=== PATIENT | female | born 1945 | race Caucasian/White ===

== ENCOUNTER 2017-02-25 23:54 | Emergency (ER) | payer OTHER ==
[2017-02-26 00:28] VITALS: BP 180/86
[2017-02-26] MEDS ORDERED: Codeine/Promethazine 10-6.25 MG/5 ML Syrup 5 ML UD Cup PO ONE (01:15)
--- NOTE | 2017-02-26 01:20 | EDM.PDOC ---
ED HPI HEADACHE COMPLAINT - General Chief Complaint: Headache Stated Complaint: HEAD PAIN Time Seen by Provider: 02/26/17 01:16 Source of Information: Reports: Patient History Limitations: Reports: No limitations - History of Present Illness INITIAL COMMENTS - FREE TEXT/NARRATIVE: states been having coughing problem for 2 months and been to clinic & PMD and taking many Rx and still not totally better, did get flu shot this year and seems like everything started afterwards. tonight was coughing so hard that suddenly everything went up into head head giving her a really bad headache and her naprosn for arthritic pain not helping. - Related Data Allergies/ADRs: Allergies Allergy/AdvReac Type Severity Reaction Status Date / Time aspirin Allergy Unknown UNKNOWN Unverified 01/20/17 16:09 Fish Containing Products Allergy Difficulty Verified 01/20/17 16:09 Breathing prochlorperazine maleate Allergy Cannot Verified 01/20/17 16:09 [From Compazine] Remember Home Meds: Home Meds Naproxen Sodium 220 mg PO QID PRN 12/16/16 [History] Benzonatate 200 mg PO ASDIRECTED PRN 02/26/17 [History] Losartan [Cozaar] 25 mg PO DAILY 02/26/17 [History] predniSONE 2.5 mg PO ASDIRECTED 02/26/17 [History] Past Medical History - Past Health History Medical/Surgical History: Denies Medical/Surgical History HEENT History: Reports: None Cardiovascular History: Reports: Hypertension Respiratory History: Reports: None Gastrointestinal History: Reports: None Genitourinary History: Reports: 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 Musculoskeletal History: Reports: Arthritis Neurological History: Reports: None Psychiatric History: Reports: None Endocrine/Metabolic History: Reports: None Hematologic History: Reports: None Immunologic History: Reports: None Oncologic (Cancer) History: Reports: None - Infectious Disease History Infectious Disease History: Reports: Chicken pox, Measles, Mumps - Past Surgical History Head Surgeries/Procedures: Reports: None HEENT Surgical History: Reports: Cataract surgery Social & Family History - Family History Family Medical History: Noncontributory - Tobacco Use Smoking Status *Q: Current Every Day Smoker Years of Tobacco use: 35 Packs/Tins Daily: 0.5 Month Tobacco Last Used: 1 Second Hand Smoke Exposure: No - Caffeine Use Caffeine Use: Reports: None - Recreational Drug Use Recreational Drug Use: No ED ROS GENERAL - Review of Systems Review Of Systems: ROS reveals no pertinent complaints other than HPI. - Physical Exam Exam: See Below Exam Limited By: No limitations General Appearance: alert, WD/WN, mild distress, other (crying) Eye Exam: bilateral eye: PERRL (pupils ER @ 4mm) Ears: normal external exam, normal canal, hearing grossly normal, normal TMs Nose: normal inspection Throat/Mouth: Normal voice, No airway compromise Head Exam: atraumatic Neck: non-tender, full range of motion Respiratory/Chest: no respiratory distress, no accessory muscle use, rhonchi. No: decreased breath sounds, accessory muscle use, retractions Cardiovascular: regular rate, rhythm GI/Abdominal: soft, non tender Neuro Exam (Abbreviated): alert, oriented, normal cognition, normal gait, no motor/sensory deficits Psychiatric: tearful Skin Exam: Warm, Dry Course - Vital Signs Last Recorded V/S: Last Vital Signs Temp 36.4 C 02/26/17 00:09 Pulse 64 02/26/17 00:09 Resp 16 02/26/17 00:09 BP 180/86 H 02/26/17 00:09 Pulse Ox 100 02/26/17 00:09 - Orders/Labs/Meds Orders: Active Orders 24 hr Category Date Time Status Codeine/Promethazine [Phenergan with Codeine] Med 02/26/17 01:15 Once 5 ml PO ONETIME ONE Medication Orders Promethazine HCl/Codeine (Phenergan With Codeine) 5 ml PO ONETIME ONE Stop: 02/26/17 01:16 Meds: Medications Generic Name Dose Route Start Last Admin Trade Name Víctor PRN Reason Stop Dose Admin Promethazine HCl/Codeine 5 ml 02/26/17 01:15 Phenergan With Codeine PO 02/26/17 01:16 ONETIME ONE Departure - Departure Time of Disposition: 01:19 Disposition: Home, Self-Care 01 Clinical Impression: Sinus headache Instructions: Sinus Headache, [id number] Forms: ED Department Discharge Additional Instructions: 1) continue meds 2) rest as much as possible 3) follow up at clinic or recheck as needed - My Orders Last 24 Hours: My Active Orders 02/26/17 01:15 Codeine/Promethazine [Phenergan with Codeine] 5 ml PO ONETIME ONE - Assessment/Plan Last 24 Hours: My Active Orders 02/26/17 01:15 Codeine/Promethazine [Phenergan with Codeine] 5 ml PO ONETIME ONE
== END 2017-02-26 01:30 | disposition home or self-care (01) ==
LOC: DL.ED 23:54
DX: R51 Headache (principal); I10 Essential (primary) hypertension; F17.210 Nicotine dependence, cigarettes, uncomplicated; M19.90 Unspecified osteoarthritis, unspecified site; Z98.49 Cataract extraction status, unspecified eye; Z88.6 Allergy status to analgesic agent; Z91.013 Allergy to seafood; Z88.8 Allergy status to other drugs, medicaments and biological substances; Z79.899 Other long term (current) drug therapy
CPT/HCPCS: 99283; A9270

== ENCOUNTER 2017-09-20 05:34 | Day surgery (SDC) | payer OTHER ==
[2017-09-20] MEDS ORDERED: fentaNYL 100 MCG/2 ML SDV IV ONE ×3 (05:35→07:10)
[2017-09-20] MEDS ORDERED: Midazolam 1 MG/ML 2 ML SDV IV ONE ×6 (05:35→07:17)
[2017-09-20] MEDS ORDERED: Sodium Chloride 0.9% 10 ML Syringe FLUSH PRN (06:00)
[2017-09-20] MEDS ORDERED: Dextrose 5%-0.45% NaCl 1,000 ML IV SCH (06:00)
[2017-09-20] MEDS ORDERED: Midazolam 1 MG/ML 2 ML SDV ONE (06:24)
[2017-09-20] MEDS ORDERED: fentaNYL 100 MCG/2 ML SDV ONE (06:25)
--- NOTE | 2017-09-20 08:16 | OR ---
DATE: 09/20/2017 PROCEDURE: Total colonoscopy. INSTRUMENT USED: CF-H180 AL Olympus video colonoscope. PREMEDICATIONS: Fentanyl 100 mcg intravenous, Versed 3 mg intravenous. Nasal O2 cannula. The procedure was done under pulse oximetry, BP recording, and linoleum floor layer. INDICATION: The patient with rectal bleeding. Colonoscopic examination is done for detection of any polypoid lesions and removal, endoscopic hemostasis therapy if needed. DESCRIPTION OF PROCEDURE: Initial rectal exam was unremarkable. Rigid anoscopy showed small internal hemorrhoids without bleeding from them. The colonoscope was passed with ease. Few scattered diverticula were noted in the distal left colon. The scope was passed with ease up to the ileocecal area. Photographs were taken of the normal-appearing cecum, identified by double- bulged ileocecal folds. No bleeding was noted from any of the visualized areas at the commencement of the examination. No stricture. No vascular ectasia. No large isolated ulcerations seen. No evidence of diffuse inflammatory bowel disease in the form of friability, contact bleeding, or ulcerations. No polyp or tumor mass identified. Probing the proximal sides of folds and flexures, using adequate distention and clearing up of the stool material, withdrawal of the scope was made. Cecum to rectum time over 6 minutes. No bleeding was noted from any of the visualized areas at the completion of examination. IMPRESSION: 1. Internal hemorrhoids. 2. Diverticulosis. The patient tolerated the procedure well. [facility] /[id number]
--- NOTE | 2017-09-20 08:54 | LETTER ---
09/20/2017 Annette Ribeiro, TUCKER [facility] [address] [place] [address] RE: MELVIN CAITIE Le : 1945 Dear Ms. Ribeiro: Ms. Caitie Guevara had colonoscopic examination done this morning and she tolerated the procedure well. I herewith send a copy of the endoscopy note and photographs for your review. She is being recommended to use Tucks pads perianal wipe as needed for irritation around the area. Thank you. Sincerely, [facility] /[id number]
[2017-09-20 09:20] VITALS: BP 109/65
== END 2017-09-20 09:29 | disposition home or self-care (01) ==
LOC: DL.ENDO 05:34
PROVIDERS: ATTEND Internal Medicine Gastroenterology
DX: K57.30 Diverticulosis of large intestine without perforation or abscess without bleeding (principal); K64.8 Other hemorrhoids; E66.09 Other obesity due to excess calories; I10 Essential (primary) hypertension; Z90.49 Acquired absence of other specified parts of digestive tract
CPT/HCPCS: 45378; J2250; J3010; J7042

== ENCOUNTER 2017-11-12 20:05 | Emergency (ER) | payer OTHER ==
[2017-11-12] MEDS ORDERED: diphenhydrAMINE 25 MG Tab PO ONE (20:06)
[2017-11-12 20:58] VITALS: BP 183/63
--- NOTE | 2017-11-12 22:18 | EDM.PDOC ---
ED HPI GENERAL MEDICAL PROBLEM - General Chief Complaint: Skin Complaint Stated Complaint: RED FARR ON WHOLE BODY [id number] Time Seen by Provider: 11/12/17 22:54 Source of Information: Reports: Patient History Limitations: Reports: No Limitations - History of Present Illness INITIAL COMMENTS - FREE TEXT/NARRATIVE: red rash to body noted saturday after using different dryer sheets, wahed off with peroxide yesterday and some better, continued below breasts and abdomen, itchy area to left ankle. no SOB Onset: Today - Related Data Allergies Allergy/AdvReac Type Severity Reaction Status Date / Time aspirin Allergy Unknown UNKNOWN Verified 11/12/17 20:48 acetaminophen Allergy Hives Verified 11/12/17 20:48 buprenorphine Allergy Hives Verified 11/12/17 20:48 butorphanol Allergy Cannot Verified 11/12/17 20:48 Remember cetirizine Allergy Hives Verified 11/12/17 20:48 codeine Allergy Hives Verified 11/12/17 20:48 Fish Containing Products Allergy Difficulty Verified 11/12/17 20:48 Breathing ibuprofen Allergy Cannot Verified 11/12/17 20:48 Remember Penicillins Allergy Hives Verified 11/12/17 20:48 pentazocine [From Talwin] Allergy Hives Verified 11/12/17 20:48 prochlorperazine maleate Allergy Hives Verified 11/12/17 20:48 [From Compazine] sulfamethoxazole Allergy Hives Verified 11/12/17 20:48 [From Bactrim] sumatriptan Allergy Cannot Verified 11/12/17 20:48 Remember trimethoprim [From Bactrim] Allergy Cannot Verified 11/12/17 20:48 Remember dihydroerotamine mesylate Allergy Cannot Uncoded 11/12/17 20:48 Remember ketorolac tromethamine Allergy Cannot Uncoded 11/12/17 20:48 Remember Home Meds: Home Meds Aspirin [Ecotrin] 81 mg PO DAILY 07/01/17 [History] Khmer Ginseng Root [Khmer Ginseng] 1 tab PO DAILY 07/01/17 [History] Metoprolol Succinate [Toprol Xl] 50 mg PO DAILY 07/01/17 [History] Nitroglycerin 0.4 mg SL ASDIRECTED PRN 07/01/17 [History] Simvastatin [Zocor] 1 tab PO DAILY 07/01/17 [History] Past Medical History - Past Health History Medical/Surgical History: Denies Medical/Surgical History HEENT History: Reports: Cataract Cardiovascular History: Reports: High Cholesterol, Hypertension, Other (See Below) Other Cardiovascular History: Hyperlipidemia Respiratory History: Reports: None Gastrointestinal History: Reports: Hemorrhoids Genitourinary History: Reports: 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: Musculoskeletal History: Reports: Arthritis Neurological History: Reports: None Psychiatric History: Reports: None Endocrine/Metabolic History: Reports: Obesity/BMI 30+ Hematologic History: Reports: None Immunologic History: Reports: None Oncologic (Cancer) History: Reports: None - Infectious Disease History Infectious Disease History: Reports: Chicken Pox, Measles, Mumps - Past Surgical History Head Surgeries/Procedures: Reports: None HEENT Surgical History: Reports: Cataract Surgery Respiratory Surgical History: Reports: None GI Surgical History: Reports: Cholecystectomy, Other (See Below) Other GI Surgeries/Procedures: External Hemorrhoid. Female Surgical History: Reports: Hysterectomy Endocrine Surgical History: Reports: None Neurological Surgical History: Reports: None Oncologic Surgical History: Reports: None Social & Family History - Family History Family Medical History: Noncontributory - Tobacco Use Smoking Status *Q: Current Some Day Smoker Years of Tobacco use: 40 Packs/Tins Daily: 0.1 Month Tobacco Last Used: 1 Second Hand Smoke Exposure: No - Caffeine Use Caffeine Use: Reports: Coffee - Recreational Drug Use Recreational Drug Use: No ED ROS GENERAL - Review of Systems Review Of Systems: See Below Constitutional: Reports: Chills HEENT: Denies: No Symptoms Respiratory: Reports: No Symptoms Cardiovascular: Reports: No Symptoms Endocrine: Reports: No Symptoms GI/Abdominal: Reports: No Symptoms : Reports: No Symptoms Musculoskeletal: Reports: No Symptoms Skin: Reports: Rash, Change in Color Neurological: Reports: Pre-Existing Deficit, Difficulty Walking Psychiatric: Reports: No Symptoms Hematologic/Lymphatic: Reports: No Symptoms Immunologic: Reports: No Symptoms ED EXAM, SKIN/RASH Exam: See Below Exam Limited By: No Limitations General Appearance: Alert, No Apparent Distress Eye Exam: Bilateral Eye: EOMI Ears: Normal External Exam Nose: Normal Inspection Throat/Mouth: Normal Inspection Head: Atraumatic, Normocephalic Neck: Normal Inspection Respiratory/Chest: No Respiratory Distress, Lungs Clear, Normal Breath Sounds, No Accessory Muscle Use Cardiovascular: Normal Peripheral Pulses, Regular Rate, Rhythm GI/Abdominal: Non-Tender, No Mass Back Exam: Normal Inspection Extremities: Normal Inspection Neurological: Alert, Oriented, Normal Cognition Skin: Warm, Dry, Intact, Rash (red rasised urticarial lower left leg, ankle below lower abdominal fold, below bilateral breast, bilateral axilla to mid lateral side.), Other Course - Vital Signs Last Recorded V/S: Last Vital Signs Temp 97.4 F 11/12/17 20:51 Pulse 63 11/12/17 20:51 Resp 18 11/12/17 20:51 BP 183/63 H 11/12/17 20:57 Pulse Ox 98 11/12/17 20:51 - Orders/Labs/Meds Meds: Medications Discontinued Medications Generic Name Dose Route Start Last Admin Trade Name Freq PRN Reason Stop Dose Admin Diphenhydramine HCl Confirm 11/12/17 23:05 Benadryl Administered 11/12/17 23:06 Dose 25 mg .ROUTE .STK-MED ONE - Re-Assessments/Exams Free Text/Narrative Re-Assessment/Exam: 11/13/17 06:45 Temp improved from home with Ibuprofen, Sucking on bottle. cheeks flushed. Strong cry. Departure - Departure Time of Disposition: 22:57 Disposition: Home, Self-Care 01 Condition: Good Clinical Impression: Contact dermatitis Qualifiers: Contact dermatitis type: irritant Contact dermatitis trigger: unspecified trigger Qualified Code(s): L24.9 - Irritant contact dermatitis, unspecified cause - Discharge Information Instructions: Contact Dermatitis, [id number] Referrals: PCP,Unobtain [Primary Care Provider] - Forms: ED Department Discharge Additional Instructions: benadryl 25mg every 6 hours as needed for rash/itching hydrocortisone cream 1% as needed to rash area follow up if not resolved in 2-3 days rewash clothing which was washed with new dryer sheets
[2017-11-12] MEDS ORDERED: diphenhydrAMINE 25 MG Tab ONE (23:05)
== END 2017-11-12 23:09 | disposition home or self-care (01) ==
LOC: DL.ED 20:05
DX: L24.9 Irritant contact dermatitis, unspecified cause (principal); I10 Essential (primary) hypertension; F17.210 Nicotine dependence, cigarettes, uncomplicated; E78.00 Pure hypercholesterolemia, unspecified; Z88.6 Allergy status to analgesic agent; Z88.8 Allergy status to other drugs, medicaments and biological substances; Z88.0 Allergy status to penicillin; Z88.2 Allergy status to sulfonamides; Z91.013 Allergy to seafood; Z88.1 Allergy status to other antibiotic agents; Z79.82 Long term (current) use of aspirin; Z79.899 Other long term (current) drug therapy
CPT/HCPCS: 99283; A9270

== ENCOUNTER 2019-01-26 09:42 | Observation (INO) | payer BC, OTHER ==
--- NOTE | 2019-01-26 09:37 | EDM.PDOC ---
ED HPI GENERAL MEDICAL PROBLEM - General Chief Complaint: Chest Pain Stated Complaint: NEW ONSET AFIB WITH RVR Time Seen by Provider: 01/26/19 09:30 Source of Information: Reports: Patient, Provider ([facility]) History Limitations: Reports: No Limitations - History of Present Illness INITIAL COMMENTS - FREE TEXT/NARRATIVE: This 73 yo female patient was sent to the ED from the [facility] via [facility] due to new onset A fib with RVR. Dr. Medrano reports that the patient came into the clinic this morning with increased shortness of breath and chest pain ( 10/10). Their EKG demonstrated the patient was in a fib with a heartrate of 130. The patient was given aspirin (324 mg) prior to ambulance transport. The patient reported her chest pain was an 8/10 upon arrival in the ED, but after belching several times her pain was gone. The patient reports her pain is now gone. Onset: Today Duration: Constant Location: Reports: Chest Quality: Reports: Other Severity: Moderate Improves with: Reports: Other (belching) Worsens with: Reports: None Context: Reports: Other Associated Symptoms: Reports: Chest Pain, Weakness Epigastric Pain Score (Numeric/FACES): 8 - Related Data Allergies Allergy/AdvReac Type Severity Reaction Status Date / Time aspirin Allergy Unknown UNKNOWN Verified 01/26/19 09:37 acetaminophen Allergy Hives Verified 01/26/19 09:37 buprenorphine Allergy Hives Verified 01/26/19 09:37 butorphanol Allergy Cannot Verified 01/26/19 09:37 Remember cetirizine Allergy Hives Verified 01/26/19 09:37 codeine Allergy Hives Verified 01/26/19 09:37 Fish Containing Products Allergy Difficulty Verified 01/26/19 09:37 Breathing ibuprofen Allergy Cannot Verified 01/26/19 09:37 Remember Penicillins Allergy Hives Verified 01/26/19 09:37 pentazocine [From Talwin] Allergy Hives Verified 01/26/19 09:37 prochlorperazine maleate Allergy Hives Verified 01/26/19 09:37 [From Compazine] sulfamethoxazole Allergy Hives Verified 01/26/19 09:37 [From Bactrim] sumatriptan Allergy Cannot Verified 01/26/19 09:37 Remember trimethoprim [From Bactrim] Allergy Cannot Verified 01/26/19 09:37 Remember dihydroerotamine mesylate Allergy Cannot Uncoded 11/12/17 20:48 Remember ketorolac tromethamine Allergy Cannot Uncoded 11/12/17 20:48 Remember Home Meds: Home Meds Aspirin [Ecotrin] 81 mg PO DAILY 07/01/17 [History] Nitroglycerin 0.4 mg SL ASDIRECTED PRN 07/01/17 [History] Simvastatin [Zocor] 1 tab PO DAILY 07/01/17 [History] Losartan Potassium 25 mg PO DAILY 01/26/19 [History] QUEtiapine Fumarate [Quetiapine Fumarate] 25 mg PO QPM 01/26/19 [History] Past Medical History - Past Health History Medical/Surgical History: Denies Medical/Surgical History HEENT History: Reports: Cataract Cardiovascular History: Reports: High Cholesterol, Hypertension, Other (See Below) Other Cardiovascular History: Hyperlipidemia Respiratory History: Reports: None Gastrointestinal History: Reports: Hemorrhoids Genitourinary History: Reports: None 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: Musculoskeletal History: Reports: Arthritis Neurological History: Reports: None Psychiatric History: Reports: None Endocrine/Metabolic History: Reports: Obesity/BMI 30+ Hematologic History: Reports: None Immunologic History: Reports: None Oncologic (Cancer) History: Reports: None - Infectious Disease History Infectious Disease History: Reports: Chicken Pox, Measles, Mumps - Past Surgical History Head Surgeries/Procedures: Reports: None HEENT Surgical History: Reports: Cataract Surgery Respiratory Surgical History: Reports: None GI Surgical History: Reports: Cholecystectomy, Other (See Below) Other GI Surgeries/Procedures: External Hemorrhoid. Female Surgical History: Reports: Hysterectomy Endocrine Surgical History: Reports: None Neurological Surgical History: Reports: None Oncologic Surgical History: Reports: None Social & Family History - Family History Family Medical History: Noncontributory - Caffeine Use Caffeine Use: Reports: Coffee ED ROS GENERAL - Review of Systems Review Of Systems: ROS reveals no pertinent complaints other than HPI. ED EXAM, GENERAL - Physical Exam Exam: See Below Exam Limited By: No Limitations General Appearance: Alert, WD/WN, Moderate Distress, Obese Eye Exam: Bilateral Eye: EOMI, Normal Inspection, PERRL Ears: Normal External Exam, Normal Canal, Hearing Grossly Normal, Normal TMs Nose: Normal Inspection, Normal Mucosa, No Blood Throat/Mouth: Normal Inspection, Normal Lips, Normal Teeth, Normal Gums, Normal Oropharynx, Normal Voice, No Airway Compromise Head: Atraumatic, Normocephalic Neck: Normal Inspection, Supple, Non-Tender, Full Range of Motion Respiratory/Chest: No Respiratory Distress, Lungs Clear, Normal Breath Sounds, No Accessory Muscle Use, Chest Non-Tender Cardiovascular: No Edema, No Gallop, No JVD, No Murmur, No Rub, Tachycardia, Irregularly Irregular GI/Abdominal: Normal Bowel Sounds, Soft, Non-Tender, No Organomegaly, No Distention, No Abnormal Bruit, No Mass (Female) Exam: Deferred Rectal (Female) Exam: Deferred Back Exam: Normal Inspection, Full Range of Motion, NT Extremities: Normal Inspection, Normal Range of Motion, Non-Tender, Normal Capillary Refill, No Pedal Edema Neurological: Alert, Oriented, CN II-XII Intact, Normal Cognition, Normal Gait, Normal Reflexes, No Motor/Sensory Deficits Psychiatric: Normal Affect, Normal Mood Skin Exam: Warm, Dry, Intact, Normal Color, No Rash Lymphatic: No Adenopathy Course - Vital Signs Last Recorded V/S: Last Vital Signs Temp 36.3 C 01/26/19 09:24 Pulse 72 01/26/19 09:55 Resp 14 01/26/19 09:55 BP 132/83 01/26/19 09:55 Pulse Ox 95 01/26/19 09:55 - Orders/Labs/Meds Orders: Active Orders 24 hr Category Date Time Status EKG Documentation Completion [RC] URGENT Care 01/26/19 09:00 Ordered Sodium Chloride 0.9% [Normal Saline] 1,000 ml Med 01/26/19 09:37 Active IV .BOLUS Medication Orders Sodium Chloride (Normal Saline) 1,000 mls @ 999 mls/hr IV .BOLUS ONE Stop: 01/26/19 10:37 Last Admin: 01/26/19 09:43 Dose: 999 mls/hr Labs: Laboratory Tests 01/26/19 01/26/19 01/26/19 Range/Units 09:29 09:29 09:29 WBC 5.6 (5.0-10.0) 10^3/uL RBC 4.86 (4.2-5.4) 10^6/uL Hgb 13.9 (12.0-16.0) g/dL Hct 43.8 (37.0-47.0) % MCV 90.1 (80-100) fL MCH 28.6 (27.0-34.0) pg MCHC 31.7 L (33.0-35.0) g/dL Plt Count 281 (150-450) 10^3/uL Neut % (Auto) 46.5 (42.2-75.2) % Lymph % (Auto) 36.4 (20.5-50.1) % [place] % (Auto) 10.2 H (2-8) % Eos % (Auto) 5.5 H (1.0-3.0) % Baso % (Auto) 1.4 H (0.0-1.0) % PT 8.7 L (9.0-12.0) SEC INR 0.9 (0.9-1.2) Sodium 140 (135-145) mmol/L Potassium 4.3 (3.6-5.0) mmol/L Chloride 103 (101-111) mmol/L Carbon Dioxide 26.0 (21.0-31.0) mmol/L Anion Gap 15.3 BUN 18 (7-18) mg/dL Creatinine 0.8 (0.6-1.3) mg/dL Est Cr Clr Drug Dosing 44.31 mL/min Estimated GFR (MDRD) > 60 BUN/Creatinine Ratio 22.50 Glucose 113 H (74-105) mg/dL Calcium 9.1 (8.4-10.2) mg/dl Total Bilirubin 0.5 (0.2-1.0) mg/dL AST 25 (10-42) IU/L ALT 22 (10-60) IU/L Alkaline Phosphatase 105 (42-121) IU/L Troponin I < 0.02 (0.00-0.02) ng/ml Total Protein 7.4 (6.7-8.2) g/dl Albumin 3.7 (3.2-5.5) g/dl Globulin 3.7 Albumin/Globulin Ratio 1.00 Meds: Medications Generic Name Dose Route Start Last Admin Trade Name Freq PRN Reason Stop Dose Admin Sodium Chloride 1,000 mls @ 999 mls/hr 01/26/19 09:37 01/26/19 09:43 Normal Saline IV 01/26/19 10:37 999 mls/hr .BOLUS ONE Administration Discontinued Medications Generic Name Dose Route Start Last Admin Trade Name Freq PRN Reason Stop Dose Admin Diltiazem HCl 20 mg 01/26/19 09:29 01/26/19 09:49 Diltiazem IVPUSH 01/26/19 09:30 20 mg ONETIME ONE Administration - Re-Assessments/Exams Free Text/Narrative Re-Assessment/Exam: 01/26/19 10:04 After an IV push of Cardizem (20 mg), the patient's heartrate was in the 80's-90 's, but the patient remained in a fib. Departure - Departure Time of Disposition: 10:24 Disposition: Admitted As Inpatient 65 Condition: Fair Clinical Impression: New onset atrial fibrillation, Atrial fibrillation with RVR Care Plan Goals: Discussed the patient's history, examination, EKG, lab and treatments with Dr. Cortez. Dr. Cortez accepted the patient for continued evaluation and further treatment as an inpatient at [facility]. - My Orders Last 24 Hours: My Active Orders 01/26/19 09:00 EKG Documentation Completion [RC] URGENT 01/26/19 09:37 Sodium Chloride 0.9% [Normal Saline] 1,000 ml IV .BOLUS - Assessment/Plan Last 24 Hours: My Active Orders 01/26/19 09:00 EKG Documentation Completion [RC] URGENT 01/26/19 09:37 Sodium Chloride 0.9% [Normal Saline] 1,000 ml IV .BOLUS
[~2019-01-26 09:42] MED LIST: Diltiazem 25 MG/5 ML SDV IVPUSH ONE; Sodium Chloride 0.9% 1,000 ML IV ONE
[2019-01-26 09:54] LABS: ANION GAP 15.3; CHLORIDE,CL 103 mmol/L (101-111); SODIUM,NA 140 mmol/L (135-145)
--- NOTE | 2019-01-26 10:11 | CR ---
Clinical history: 73-year-old female with new onset atrial fibrillation. Interpretation: Upright AP chest radiograph unremarkable for age, inspiration and AP magnified technique. Normal cardiac silhouette without cephalization of vascular flow, alveolar edema or dependent pleural effusion. No new lung mass, hilar lymphadenopathy or residual lobar pneumonia when compared to 20 January 2017 exam. No new infiltrate, atelectasis or collapse. No pneumothorax or free subdiaphragmatic air. CONCLUSION: No acute cardiopulmonary abnormality (radiographically)
[2019-01-26] MEDS ORDERED: Sodium Chloride 0.9% 10 ML Syringe FLUSH PRN (10:52)
[2019-01-26] MEDS ORDERED: Nitroglycerin 0.4 MG Tab.SL SL PRN (10:54)
--- NOTE | 2019-01-26 11:09 | PCM.HP ---
H&P History of Present Illness - General Date of Service: 01/26/19 Admit Problem/Dx: Admission Diagnosis/Problem Admission Diagnosis/Problem Atrial fibrillation Source of Information: Patient History Limitations: Reports: No Limitations - History of Present Illness Initial Comments - Free Text/Narative: 73 yo F with PMH of hypertension, arthritis, provoked DVT in the past, ( completed 6 months of coumadin for this), who presents with palpitations of one day duration. The patient reports waking up today and having palpations. She describes a feeling of having "heartburn". No vomitind, no diaphoresis, no pain in the left arm or jaw, no abdominal pain, no urinary symptoms. Found to be in Afib with RVR in the ED. Was given a bolus of 20 mg of Cardizem and heart rate is controlled. Admission requested for new onset afib. Epigastric Pain Score (Numeric/FACES): 8 - Related Data Allergies/Adverse Reactions: Allergies Allergy/AdvReac Type Severity Reaction Status Date / Time aspirin Allergy Unknown UNKNOWN Verified 01/26/19 09:37 acetaminophen Allergy Hives Verified 01/26/19 09:37 buprenorphine Allergy Hives Verified 01/26/19 09:37 butorphanol Allergy Cannot Verified 01/26/19 09:37 Remember cetirizine Allergy Hives Verified 01/26/19 09:37 codeine Allergy Hives Verified 01/26/19 09:37 Fish Containing Products Allergy Difficulty Verified 01/26/19 09:37 Breathing ibuprofen Allergy Cannot Verified 01/26/19 09:37 Remember Penicillins Allergy Hives Verified 01/26/19 09:37 pentazocine [From Talwin] Allergy Hives Verified 01/26/19 09:37 prochlorperazine maleate Allergy Hives Verified 01/26/19 09:37 [From Compazine] sulfamethoxazole Allergy Hives Verified 01/26/19 09:37 [From Bactrim] sumatriptan Allergy Cannot Verified 01/26/19 09:37 Remember trimethoprim [From Bactrim] Allergy Cannot Verified 01/26/19 09:37 Remember dihydroerotamine mesylate Allergy Cannot Uncoded 11/12/17 20:48 Remember ketorolac tromethamine Allergy Cannot Uncoded 11/12/17 20:48 Remember Home Medications: Home Meds Aspirin [Ecotrin] 81 mg PO DAILY 07/01/17 [History] Nitroglycerin 0.4 mg SL ASDIRECTED PRN 07/01/17 [History] Simvastatin [Zocor] 1 tab PO DAILY 07/01/17 [History] Losartan Potassium 25 mg PO DAILY 01/26/19 [History] QUEtiapine Fumarate [Quetiapine Fumarate] 25 mg PO QPM 01/26/19 [History] Past Medical History - Past Health History Medical/Surgical History: Denies Medical/Surgical History HEENT History: Reports: Cataract Cardiovascular History: Reports: High Cholesterol, Hypertension, Other (See Below) Other Cardiovascular History: Hyperlipidemia Respiratory History: Reports: None Gastrointestinal History: Reports: Hemorrhoids Genitourinary History: Reports: None STUDENT SERVICES REP History: Reports: Musculoskeletal History: Reports: Arthritis Neurological History: Reports: None Psychiatric History: Reports: None Endocrine/Metabolic History: Reports: Obesity/BMI 30+ Hematologic History: Reports: None Immunologic History: Reports: None Oncologic (Cancer) History: Reports: None - Infectious Disease History Infectious Disease History: Reports: Chicken Pox, Measles, Mumps - Past Surgical History Head Surgeries/Procedures: Reports: None HEENT Surgical History: Reports: Cataract Surgery Respiratory Surgical History: Reports: None GI Surgical History: Reports: Cholecystectomy, Other (See Below) Other GI Surgeries/Procedures: External Hemorrhoid. Female Surgical History: Reports: Hysterectomy Endocrine Surgical History: Reports: None Neurological Surgical History: Reports: None Oncologic Surgical History: Reports: None Social & Family History - Family History Family Medical History: Noncontributory - Tobacco Use Smoking Status *Q: Current Some Day Smoker Years of Tobacco use: 20 Packs/Tins Daily: 0.1 - Caffeine Use Caffeine Use: Reports: Coffee - Recreational Drug Use Recreational Drug Use: No H&P Review of Systems - Review of Systems: Review Of Systems: ROS reveals no pertinent complaints other than HPI. General: Reports: No Symptoms HEENT: Reports: No Symptoms Pulmonary: Reports: No Symptoms Cardiovascular: Reports: Palpitations Gastrointestinal: Reports: No Symptoms Genitourinary: Reports: No Symptoms Musculoskeletal: Reports: No Symptoms Exam - Exam Exam: See Below - Vital Signs Vital Signs: Last Vital Signs Temp 36.3 C 01/26/19 09:24 Pulse 72 01/26/19 09:55 Resp 14 01/26/19 09:55 BP 132/83 01/26/19 09:55 Pulse Ox 95 01/26/19 09:55 Weight: 83.461 kg - Exam General: Alert, Oriented HEENT: Conjunctiva Clear Neck: Supple, Trachea Midline Lungs: Clear to Auscultation Cardiovascular: Irregular Rhythm GI/Abdominal Exam: Normal Bowel Sounds - Patient Data Lab Results Last 24 hrs: Laboratory Results - last 24 hr 01/26/19 01/26/19 01/26/19 Range/Units 09:29 09:29 09:29 WBC 5.6 (5.0-10.0) 10^3/uL RBC 4.86 (4.2-5.4) 10^6/uL Hgb 13.9 (12.0-16.0) g/dL Hct 43.8 (37.0-47.0) % MCV 90.1 (80-100) fL MCH 28.6 (27.0-34.0) pg MCHC 31.7 L (33.0-35.0) g/dL Plt Count 281 (150-450) 10^3/uL Neut % (Auto) 46.5 (42.2-75.2) % Lymph % (Auto) 36.4 (20.5-50.1) % [place] % (Auto) 10.2 H (2-8) % Eos % (Auto) 5.5 H (1.0-3.0) % Baso % (Auto) 1.4 H (0.0-1.0) % PT 8.7 L (9.0-12.0) SEC INR 0.9 (0.9-1.2) Sodium 140 (135-145) mmol/L Potassium 4.3 (3.6-5.0) mmol/L Chloride 103 (101-111) mmol/L Carbon Dioxide 26.0 (21.0-31.0) mmol/L Anion Gap 15.3 BUN 18 (7-18) mg/dL Creatinine 0.8 (0.6-1.3) mg/dL Est Cr Clr Drug Dosing 44.31 mL/min Estimated GFR (MDRD) > 60 BUN/Creatinine Ratio 22.50 Glucose 113 H (74-105) mg/dL Calcium 9.1 (8.4-10.2) mg/dl Total Bilirubin 0.5 (0.2-1.0) mg/dL AST 25 (10-42) IU/L ALT 22 (10-60) IU/L Alkaline Phosphatase 105 (42-121) IU/L Troponin I < 0.02 (0.00-0.02) ng/ml Total Protein 7.4 (6.7-8.2) g/dl Albumin 3.7 (3.2-5.5) g/dl Globulin 3.7 Albumin/Globulin Ratio 1.00 Result Diagrams: 01/26/19 09:29 01/26/19 09:29 Problem List Initiated/Reviewed/Updated: Yes Orders Last 24hrs: Active Orders 24 hr Category Date Time Status Patient Status [ADT] Routine ADT 01/26/19 10:52 Active Ambulate [RC] ASDIRECTED Care 01/26/19 10:52 Active EKG Documentation Completion [RC] URGENT Care 01/26/19 09:00 Active Height and Weight [RC] DAILY Care 01/26/19 10:52 Active Oxygen Therapy [RC] PRN Care 01/26/19 10:52 Active Peripheral IV Care [RC] . DIRECTED Care 01/26/19 10:52 Active Up With Assistance [RC] ASDIRECTED Care 01/26/19 10:52 Active VTE/DVT Education [RC] PER UNIT ROUTINE Care 01/26/19 10:52 Active Vital Signs [RC] Q4H Care 01/26/19 10:52 Active Regular Diet [DIET] Diet 01/26/19 Breakfast Active Echo Comp wo Cont [US] Routine Exams 01/26/19 10:52 Ordered TROPONIN I [CHEM] Q6H Lab 01/26/19 15:00 Ordered TROPONIN I [CHEM] Q6H Lab 01/26/19 21:00 Ordered Aspirin [Halfprin] Med 01/27/19 09:00 Ordered 81 mg PO DAILY Losartan [Cozaar] Med 01/27/19 09:00 Ordered 25 mg PO DAILY Metoprolol Tartrate [Lopressor] Med 01/26/19 11:00 Ordered 50 mg PO Q12H Nitroglycerin [Nitrostat] Med 01/26/19 10:54 Ordered 0.4 mg SL ASDIRECTED PRN QUEtiapine [SEROquel] Med 01/26/19 11:00 Ordered 25 mg PO QPM Rivaroxaban [Xarelto] Med 01/26/19 18:00 Ordered 20 mg PO WITHDINNER Simvastatin [Zocor] Med 01/27/19 09:00 Ordered DOSE mg PO DAILY Sodium Chloride 0.9% [Saline Flush] Med 01/26/19 10:52 Ordered 10 ml FLUSH ASDIRECTED PRN Peripheral IV Insertion Adult [OM.PC] Routine Oth 01/26/19 10:52 Ordered Saline Lock Insert [OM.PC] Routine Oth 01/26/19 10:52 Ordered Resuscitation Status Routine Resus Stat 01/26/19 10:52 Ordered Medication Orders Aspirin (Halfprin) 81 mg PO DAILY PATSY Losartan Potassium (Cozaar) 25 mg PO DAILY PATSY Metoprolol Tartrate (Lopressor) 50 mg PO Q12H PATSY Nitroglycerin (Nitrostat) 0.4 mg SL ASDIRECTED PRN PRN Reason: Chest Pain Quetiapine Fumarate (Seroquel) 25 mg PO QPM PATSY Rivaroxaban (Xarelto) 20 mg PO WITHDINNER PATSY Simvastatin (Zocor) mg PO DAILY PATSY Sodium Chloride (Saline Flush) 10 ml FLUSH ASDIRECTED PRN PRN Reason: Keep Vein Open Assessment/Plan Comment:: #New onset atrial fibrillation I spent considerable time discussing atrial fibrillation with the patient. Also discussed the need for AC and she understands and agrees. Rate control: start metoprolol 50 mg bid Anticoagulation: start xarelto 20 mg daily check 2D echo trend troponin serial EKG cardiac monitoring f/u with cardiology clinic #HTN continue home meds #HLD continue simvastatin #DVT ppx start xarelto #FC
[2019-01-26] MEDS: Metoprolol Tartrate 50 MG Tab PO SCH ×2 (12:01→21:31)
[2019-01-26] MEDS ORDERED: Rivaroxaban 10 MG Tab PO SCH (18:00)
[2019-01-26] MEDS ORDERED: Docusate Sodium 100 MG Cap PO ONE (20:14)
[2019-01-26] MEDS ORDERED: QUEtiapine 25 MG Tab PO SCH (21:00)
[2019-01-27] MEDS ORDERED: Multivitamins, Therapeutic with Minerals Tab PO SCH (08:00)
[2019-01-27] MEDS: Metoprolol Tartrate 50 MG Tab PO SCH (08:53)
[2019-01-27] MEDS ORDERED: Simvastatin 40 MG Tab PO SCH (09:00)
[2019-01-27] MEDS ORDERED: Aspirin 81 MG Tab.EC PO SCH (12:00)
[2019-01-27] MEDS ORDERED: Losartan 25 MG Tab PO SCH (12:00)
[2019-01-27 15:42] VITALS: BP 108/77
--- NOTE | 2019-01-29 13:55 | EKG ---
01/26/2019 - CAITIE CHARLES - TIME: 9:21 a.m. This 12-lead EKG is the first of two EKG's performed during this admission. There are 2 previous EKGs available for comparison, dated 05/21/2014, and another performed on 01/26/2019, at the [facility] prior to admission. The 12-lead EKG performed today shows atrial fibrillation with a rapid ventricular rate of 138 (74 to 170). Q-waves are present and were previously seen in 2013, indicative of possible inferior infarction of indeterminate age. There were no other acute findings. The EKG performed prior to admission at the clinic had also showed atrial fibrillation with an average rate of 139, and there were no other marked changes. IMPRESSION: Atrial fibrillation with rapid ventricular response, otherwise unchanged. [facility] /[id number] JACOB
--- NOTE | 2019-01-29 14:58 | EKG ---
01/27/2019 - CAITIE CHARLES - TIME: 9:46 a.m. This is the second of two EKGs performed during this admission. This 12-lead EKG shows a sinus rhythm with a ventricular rate of 66, normal axis and intervals. No acute ST-T wave findings. There are Q-waves in the inferior leads consistent with an age-indeterminate inferior event. This EKG was compared to a previous EKGs performed in 2013 and two performed within the last 24 hours. The last two EKGs had shown atrial fib with RVR. The patient is now on a beta-martinez and is rate controlled. [facility] /[id number] [facility]ALKait
--- NOTE | 2019-01-30 07:26 | DISCH ---
DISCHARGE DIAGNOSES: 1. Atrial fibrillation with rapid ventricular response, apparently new onset. 2. The patient now in normal sinus rhythm. 3. Mild elevation in troponin overnight with decreased levels this morning. Demand ischemia? 4. Hypertension by history, controlled. BRIEF HISTORY OF PRESENT ILLNESS: Leeanna Guevara is a 73-year-old lady who was seen at the [facility] on 01/26/2019. A 12- lead EKG was performed during the admission and showed atrial fibrillation with a ventricular rate of 139. There were Q waves seen in the inferior leads indicating possible inferior event, age indeterminate. She was referred to the Emergency Department for further evaluation. Mrs. Guevara had presented to the clinic stating that she has had some shortness of breath and chest pain that morning. The EKG at the [place] showed that she was in AFib with a rapid ventricular rate. She received aspirin 324 mg en route to the ER. Chest pain had improved, and she stated that she had been able to belch several times and the pain was gone. A 12-lead EKG in the ER confirmed atrial fibrillation with an average ventricular rate of 138 (74 to 170); once again seen were the Q waves in the inferior leads, these were age indeterminate. In the emergency room, she received 20 mg IV diltiazem and was admitted for further management. PERTINENT LABORATORY AND X-RAY DATA: CBC at the time of admission showed a white count of 5.6, platelets were normal, hemoglobin and hematocrit are 13.9 and 43.8. Baseline INR was 0.9. Chemistry showed normal electrolytes. BUN and creatinine were 18 and 0.8 with a GFR of more than 60. Non-fasting blood sugar was 113. LFTs were unremarkable. Initial troponin was less than 0.02. Followup troponins were 0.05, 0.06, and 0.04 on the day of discharge (0.00 to 0.02). Given these mild elevations in the face of AFib with RVR, these minimally elevated troponins may indicate demand ischemia and may require further investigation by Cardiology. Two 12-lead EKGs were performed during this admission. The first EKG was performed in the ER and confirmed atrial fibrillation with rapid ventricular rate of 138. A repeat 12-lead EKG the next morning showed a normal sinus rhythm without ectopy. Ventricular rate was controlled at 66. Once again seen were the Q waves in the inferior leads. A single-view chest x-ray was performed at the time of admission and showed no acute cardiopulmonary abnormality. There was no cardiomegaly. No pulmonary venous congestion. No infiltrates. An echocardiogram was obtained on the day of admission and showed an ejection fraction of 60% to 65%. Diastolic dysfunction could not be eliminated due to the arrhythmia at that time. There were moderate concentric LVH and mild MR. The aortic valve was sclerotic but not stenotic. Doppler findings did not suggest pulmonary hypertension. HOSPITAL COURSE: Mrs. Guevara was admitted for observation. She was placed on telemetry and remained on telemetry until the time of discharge. Telemetry showed normal sinus rhythm following the administration of IV Cardizem. She was continued on a beta-martinez and is on metoprolol tartrate 50 mg every 12 hours. For anticoagulation, she was started on rivaroxaban (Xarelto). Her usual blood pressure medication, losartan, was continued and Seroquel at bedtime. Mrs. Guevara did very well. Her vital signs remained stable. Ventricular heart rate remained controlled following her return to normal sinus rhythm. Blood pressure on the beta-martinez ranged from 124/72 to 110/50 on the day of discharge. She had no further chest pain or shortness of breath. She was eating and drinking well, tolerating her diet, and voiding. She was very eager to be discharged to home. PHYSICAL EXAMINATION: General: On the day of discharge, she was lying comfortably in bed with a family member present. Vital Signs: Blood pressures were 120/62 and 108/77 prior to discharge, heart rate was between 50 and 57, respiratory rate 20 and nonlabored, oxygen saturation 97% on room air, temperature 97.6. Weight 193 pounds, height 4 feet 11 inches. HEENT: Unremarkable. ENT was clear. Neck: No JVDs or bruits. Chest: Showed clear but diminished bilateral breath sounds. Heart: Showed regular rate and rhythm. Abdomen: Soft, obese, and benign. Extremities: Showed the calves to be soft and nontender and she was neurologically intact. DISCHARGE MEDICATIONS: 1. Seroquel 25 mg at bedtime. 2. MiraLax 17 g p.o. daily p.r.n. 3. Nitroglycerin 0.4 mg sublingual p.r.n. 4. Multivitamin with minerals 1 tablet daily. 5. Losartan 25 mg daily. 6. Lidocaine 5% patches. She apparently wears 3 patches at a time every 12 hours on a p.r.n. basis (historical medication). 7. Colace 100 mg p.o. b.i.d. p.r.n. 8. Albuterol inhaler 2 puffs every 4 hours p.r.n. New medications at the time of discharge include: 1. Metoprolol tartrate 50 mg p.o. every 12 hours. 2. Xarelto 20 mg daily. Both of these medications were called in to the [facility]. ALLERGIES: Mrs. Guevara claims multiple allergies and/or intolerances to multiple medications. Please see the MAR for complete details. PLAN: Mrs. Guevara will be discharged to home. We strongly encouraged her to follow up with Dr. Cotto in the next week to 10 days. She should seek care if she develops chest pain, shortness of breath, or any issues with bleeding. I spent time with her explaining why she is being placed on the beta-martinez and Xarelto. We explained the increased risk for stroke in patients with atrial fibrillation and the reason for the anticoagulant. We also stressed that she should not be taking NSAIDs with the Xarelto, and we have stopped her aspirin and also explained to her that she should avoid all NSAIDs as much as possible. She should follow a heart healthy diet. Activity level should be as tolerated. She should seek earlier care for any issues of concern. Please note the following: Mrs. Guevara was seen in 09/2008 by Cardiology, Dr. Rashid. The reason for this referral was palpitations. She wore a 23-hour Holter monitor which showed predominantly normal sinus rhythm with an occasional PVC. No significant tachycardia was noted. She was not on any beta-martinez or calcium channel martinez at that time, and there was no clear correlation to her symptoms (palpitations). An EKG from that time could not be found. CONDITION AT THE TIME OF DISCHARGE: Hemodynamically stable. The patient was once again urged to have an early followup with Dr. Cotto with possible referral to Cardiology. [facility] /[id number] JACOB
== END 2019-01-27 15:38 | disposition home or self-care (01) ==
LOC: DL.ED 09:42 → DL.MS 10:42 → UNDOADMOB 10:42 → INTOOBSV 10:42 → DL.MS 10:52
PROVIDERS: ADMIT Hospitalist; ATTEND Hospitalist
DX: I48.91 Unspecified atrial fibrillation (principal); I10 Essential (primary) hypertension; E78.5 Hyperlipidemia, unspecified; M19.90 Unspecified osteoarthritis, unspecified site; F17.200 Nicotine dependence, unspecified, uncomplicated; E66.9 Obesity, unspecified; Z68.37 Body mass index [BMI] 37.0-37.9, adult; Z79.82 Long term (current) use of aspirin; Z79.899 Other long term (current) drug therapy; Z88.6 Allergy status to analgesic agent; Z88.5 Allergy status to narcotic agent; Z91.013 Allergy to seafood; Z88.1 Allergy status to other antibiotic agents; Z88.2 Allergy status to sulfonamides
CPT/HCPCS: 36415; 71045; 80053; 84484; 85025; 85610; 93005; 93306; 96374; 99285; A9270; J3490; J7030

== ENCOUNTER 2019-05-08 00:08 | Emergency (ER) | payer BC, OTHER ==
--- NOTE | 2019-05-08 00:35 | EDM.PDOC ---
ED HPI GENERAL MEDICAL PROBLEM - General Chief Complaint: Abdominal Pain Stated Complaint: CONSTANT BOWEL MOVEMENTS, CANT EAT [id number] Time Seen by Provider: 05/08/19 00:34 Source of Information: Reports: Patient, Family, RN, RN Notes Reviewed History Limitations: Reports: No Limitations - History of Present Illness INITIAL COMMENTS - FREE TEXT/NARRATIVE: Pt to ER with c/o constant diarrhea, weakness, dizziness, and abdominal cramping. Patient states the diarrhea began yesterday and has been constant since then. Has not eaten much today at all. Denies fever, admits to chills. Onset: Sudden Treatments IRIDOLOGIST: Reports: Other Medication(s) - Related Data Allergies Allergy/AdvReac Type Severity Reaction Status Date / Time acetaminophen Allergy Hives Verified 01/26/19 11:49 buprenorphine Allergy Hives Verified 01/26/19 11:49 butorphanol Allergy Cannot Verified 01/26/19 11:49 Remember cephalexin Allergy Hives Verified 01/26/19 11:49 cetirizine Allergy Hives Verified 01/26/19 11:49 codeine Allergy Hives Verified 01/26/19 11:49 Fish Containing Products Allergy Difficulty Verified 01/26/19 11:49 Breathing ibuprofen Allergy Swollen Verified 01/26/19 11:49 Tongue ketorolac [From Toradol] Allergy Swollen Verified 01/26/19 11:49 Tongue Penicillins Allergy Hives Verified 01/26/19 11:49 pentazocine [From Talwin] Allergy Hives Verified 01/26/19 11:49 prochlorperazine maleate Allergy Hives Verified 01/26/19 11:49 [From Compazine] sulfamethoxazole Allergy Swollen Verified 01/26/19 11:49 [From Bactrim] Tongue sumatriptan Allergy Swollen Verified 01/26/19 11:49 Tongue trimethoprim [From Bactrim] Allergy Swollen Verified 01/26/19 11:49 Tongue rofecoxib [From Vioxx] AdvReac Edema Verified 01/26/19 11:49 tramadol AdvReac Rash Verified 01/26/19 11:49 dihydroerotamine mesylate Allergy Cannot Uncoded 05/08/19 00:21 Remember Home Meds: Home Meds Nitroglycerin 0.4 mg SL ASDIRECTED PRN 07/01/17 [History] Albuterol Sulfate [Proair Hfa] 2 puff INH Q4HR PRN 01/26/19 [History] Docusate Sodium [Colace] 100 mg PO BID PRN 01/26/19 [History] Lidocaine 5% [Lidoderm 5%] 3 patch TOP Q12HR PRN 01/26/19 [History] Losartan Potassium 25 mg PO DAILY 01/26/19 [History] Multivitamin [Multi-Vitamin Daily] 1 tab PO DAILY 01/26/19 [History] Polyethylene Glycol 3350 [MiraLAX] 1 capful PO DAILY PRN 01/26/19 [History] QUEtiapine Fumarate [Quetiapine Fumarate] 25 mg PO BEDTIME 01/26/19 [History] Metoprolol Tartrate [Lopressor] 50 mg PO Q12HR #60 tab 01/27/19 [Rx] Rivaroxaban [Xarelto] 20 mg PO DAILY #30 tablet 01/27/19 [Rx] Past Medical History - Past Health History Medical/Surgical History: Denies Medical/Surgical History HEENT History: Reports: Cataract, Other (See Below) Other HEENT History: hypermetropia, presbyopia, astigmatism Cardiovascular History: Reports: High Cholesterol, Hypertension, Other (See Below) Other Cardiovascular History: Hyperlipidemia Respiratory History: Reports: Bronchitis, Recurrent Gastrointestinal History: Reports: Chronic Constipation, GERD, Hemorrhoids Genitourinary History: Reports: None 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: Musculoskeletal History: Reports: Arthritis Neurological History: Reports: Vertigo, Other (See Below) Other Neuro History: claustrophobia Psychiatric History: Reports: None Endocrine/Metabolic History: Reports: Obesity/BMI 30+ Hematologic History: Reports: None Immunologic History: Reports: None Oncologic (Cancer) History: Reports: None - Infectious Disease History Infectious Disease History: Reports: Chicken Pox, Measles, Mumps - Past Surgical History Head Surgeries/Procedures: Reports: None HEENT Surgical History: Reports: Cataract Surgery Respiratory Surgical History: Reports: None GI Surgical History: Reports: Cholecystectomy, Other (See Below) Other GI Surgeries/Procedures: External Hemorrhoid. Female Surgical History: Reports: Hysterectomy Endocrine Surgical History: Reports: None Neurological Surgical History: Reports: None Oncologic Surgical History: Reports: None Social & Family History - Family History Family Medical History: Noncontributory - Tobacco Use Smoking Status *Q: Current Every Day Smoker Years of Tobacco use: 50 Packs/Tins Daily: 1 Tobacco Use Comment: pt says she smokes 2 cigerattes per week Second Hand Smoke Exposure: No - Caffeine Use Caffeine Use: Reports: Coffee - Recreational Drug Use Recreational Drug Use: No ED ROS GENERAL - Review of Systems Review Of Systems: ROS reveals no pertinent complaints other than HPI. ED EXAM, GI/ABD - Physical Exam Exam: See Below Exam Limited By: No Limitations General Appearance: Alert, WD/WN, Moderate Distress Eyes: Bilateral: Normal Appearance, EOMI Ears: Normal External Exam, Hearing Grossly Normal Nose: Normal Inspection Throat/Mouth: Normal Inspection, Normal Voice, No Airway Compromise Head: Atraumatic, Normocephalic Neck: Normal Inspection, Supple, Non-Tender, Full Range of Motion Respiratory/Chest: No Respiratory Distress, Lungs Clear, Normal Breath Sounds, No Accessory Muscle Use, Chest Non-Tender Cardiovascular: Normal Peripheral Pulses, Regular Rate, Rhythm, No Edema, No Gallop, No JVD, No Murmur, No Rub GI/Abdominal Exam: Soft, Tender (LLQ, RLQ), Abnormal Bowel Sounds (hyperactive) (Female) Exam: Deferred Rectal (Female) Exam: Deferred Back Exam: Normal Inspection, Full Range of Motion, NT Extremities: Normal Inspection, Normal Range of Motion, Non-Tender, Normal Capillary Refill, No Pedal Edema Neurological: Alert, Oriented, CN II-XII Intact, Normal Cognition, Normal Gait, Normal Reflexes, No Motor/Sensory Deficits Psychiatric: Normal Affect, Normal Mood Skin Exam: Warm, Dry, Intact, Normal Color, No Rash Lymphatic: No Adenopathy Course - Vital Signs Last Recorded V/S: Last Vital Signs Temp 97.3 F 05/08/19 00:14 Pulse 67 05/08/19 00:14 Resp 16 05/08/19 00:14 BP 143/62 H 05/08/19 00:14 Pulse Ox 97 05/08/19 00:14 - Orders/Labs/Meds Orders: Active Orders 24 hr Category Date Time Status Peripheral IV Care [RC] . DIRECTED Care 05/08/19 00:40 Active CLOSTRIDIUM DIFFICILE TOX RFLX [MREF] Stat Lab 05/08/19 01:08 Received CULTURE STOOL [RM] Stat Lab 05/08/19 01:08 Received SHIGA TOXIN 1 & 2 [MREF] Stat Lab 05/08/19 01:08 Received Sodium Chloride 0.9% [Saline Flush] Med 05/08/19 00:40 Active 10 ml FLUSH ASDIRECTED PRN Isolation [COMM] Stat Ot 05/08/19 01:09 Ordered Peripheral IV Insertion Adult [OM.PC] Stat Ot 05/08/19 00:40 Ordered Medication Orders Sodium Chloride (Saline Flush) 10 ml FLUSH ASDIRECTED PRN PRN Reason: Keep Vein Open Labs: Laboratory Tests 05/08/19 05/08/19 Range/Units 00:51 00:51 WBC 7.0 (5.0-10.0) 10^3/uL RBC 4.77 (4.2-5.4) 10^6/uL Hgb 13.5 (12.0-16.0) g/dL Hct 42.7 (37.0-47.0) % MCV 89.5 (80-100) fL MCH 28.3 (27.0-34.0) pg MCHC 31.6 L (33.0-35.0) g/dL Plt Count 232 (150-450) 10^3/uL Neut % (Auto) 66.2 (42.2-75.2) % Lymph % (Auto) 22.5 (20.5-50.1) % [place] % (Auto) 9.8 H (2-8) % Eos % (Auto) 1.4 (1.0-3.0) % Baso % (Auto) 0.1 (0.0-1.0) % Sodium 135 (135-145) mmol/L Potassium 4.0 (3.6-5.0) mmol/L Chloride 102 (101-111) mmol/L Carbon Dioxide 22.0 (21.0-31.0) mmol/L Anion Gap 15.0 BUN 17 (7-18) mg/dL Creatinine 0.8 (0.6-1.3) mg/dL Est Cr Clr Drug Dosing 44.31 mL/min Estimated GFR (MDRD) > 60 BUN/Creatinine Ratio 21.25 Glucose 105 (74-105) mg/dL Calcium 8.3 L (8.4-10.2) mg/dl Total Bilirubin 0.6 (0.2-1.0) mg/dL AST 31 (10-42) IU/L ALT 30 (10-60) IU/L Alkaline Phosphatase 100 (42-121) IU/L Total Protein 7.4 (6.7-8.2) g/dl Albumin 3.9 (3.2-5.5) g/dl Globulin 3.5 Albumin/Globulin Ratio 1.11 Meds: Medications Generic Name Dose Route Start Last Admin Trade Name Kingsleyq PRN Reason Stop Dose Admin Sodium Chloride 10 ml 05/08/19 00:40 Saline Flush FLUSH ASDIRECTED PRN Keep Vein Open Discontinued Medications Generic Name Dose Route Start Last Admin Trade Name Kingsleyq PRN Reason Stop Dose Admin Dicyclomine HCl 20 mg 05/08/19 00:40 05/08/19 00:54 Bentyl IM 05/08/19 00:41 20 mg ONETIME ONE Administration Lactated Ringer's 1,000 mls @ 999 mls/hr 05/08/19 00:40 05/08/19 00:53 Ringers, Lactated IV 05/08/19 01:40 999 mls/hr .BOLUS ONE Administration Departure - Departure Time of Disposition: 02:22 Disposition: Home, Self-Care 01 Condition: Fair Clinical Impression: Gastroenteritis Diarrhea Qualifiers: Diarrhea type: unspecified type Qualified Code(s): R19.7 - Diarrhea, unspecified - Discharge Information *PRESCRIPTION DRUG MONITORING PROGRAM REVIEWED*: No *COPY OF PRESCRIPTION DRUG MONITORING REPORT IN PATIENT KHANG: No Instructions: Viral Gastroenteritis, Adult, [id number], Food Choices to Help Relieve Diarrhea, Adult, Diarrhea, Adult, [id number] Forms: ED Department Discharge Additional Instructions: Drink plenty of fluids May use Imodium as directed for diarrhea RX: Dicyclomine Rest Follow up with your primary care facility if no improvement - My Orders Last 24 Hours: My Active Orders 05/08/19 00:40 Peripheral IV Care [RC] . DIRECTED Sodium Chloride 0.9% [Saline Flush] 10 ml FLUSH ASDIRECTED PRN Peripheral IV Insertion Adult [OM.PC] Stat 05/08/19 01:08 CLOSTRIDIUM DIFFICILE TOX RFLX [MREF] Stat CULTURE STOOL [RM] Stat SHIGA TOXIN 1 & 2 [MREF] Stat 05/08/19 01:09 Isolation [COMM] Stat - Assessment/Plan Last 24 Hours: My Active Orders 05/08/19 00:40 Peripheral IV Care [RC] . DIRECTED Sodium Chloride 0.9% [Saline Flush] 10 ml FLUSH ASDIRECTED PRN Peripheral IV Insertion Adult [OM.PC] Stat 05/08/19 01:08 CLOSTRIDIUM DIFFICILE TOX RFLX [MREF] Stat CULTURE STOOL [RM] Stat SHIGA TOXIN 1 & 2 [MREF] Stat 05/08/19 01:09 Isolation [COMM] Stat
[2019-05-08] MEDS ORDERED: Lactated Ringers 1,000 ML IV ONE (00:40)
[2019-05-08] MEDS ORDERED: Dicyclomine 20 MG/2 ML SDV IM ONE (00:40)
[2019-05-08] MEDS ORDERED: Sodium Chloride 0.9% 10 ML Syringe FLUSH PRN (00:40)
[2019-05-08 01:20] LABS: CHLORIDE,CL 102 mmol/L (101-111); SODIUM,NA 135 mmol/L (135-145)
[2019-05-08 02:25] VITALS: BP 162/58
== END 2019-05-08 02:44 | disposition home or self-care (01) ==
LOC: DL.ED 00:08
DX: K52.9 Noninfective gastroenteritis and colitis, unspecified (principal); E78.00 Pure hypercholesterolemia, unspecified; I10 Essential (primary) hypertension; E78.5 Hyperlipidemia, unspecified; F17.210 Nicotine dependence, cigarettes, uncomplicated; Z88.8 Allergy status to other drugs, medicaments and biological substances; Z88.5 Allergy status to narcotic agent; Z79.899 Other long term (current) drug therapy
CPT/HCPCS: 36415; 80053; 85025; 87045; 87046; 87324; 87493; 87899; 96360; 96372; 99284; J0500; J7120

== ENCOUNTER 2019-08-01 13:34 | Emergency (ER) | payer BC, OTHER ==
[2019-08-01 13:59] VITALS: BP 120/57
[2019-08-01] MEDS ORDERED: Lidocaine 5% Oint 35.44 GM Tube TOP ONE (15:40)
[2019-08-01] MEDS ORDERED: Acetaminophen/Codeine 300-30 MG Tab PO ONE (15:44)
[2019-08-01] MEDS ORDERED: Ondansetron 4 MG Tab.DIS PO ONE (15:44)
--- NOTE | 2019-08-01 15:48 | EDM.PDOC ---
Scribed by Misty Briscoe 08/01/19 [id number] for Anthony Brown MD ED HPI GENERAL MEDICAL PROBLEM - General Chief Complaint: General Stated Complaint: PER PATIENT WHEN SHE BREATHS LUNG HURTS Time Seen by Provider: 08/01/19 14:14 Source of Information: Reports: Patient, RN, RN Notes Reviewed History Limitations: Reports: No Limitations - History of Present Illness INITIAL COMMENTS - FREE TEXT/NARRATIVE: Patient presents to ER with left sided pain. She states that she was at the grocery store a few days ago and lifted a turkey out of the freezer when it started. Patient states pain radiates up into her neck. She also hurts when she takes a deep breath. She has not taken anything for the pain. Onset: Gradual Duration: Getting Worse Location: Reports: Neck, Chest, Other (left side) Quality: Reports: Ache Severity: Moderate Improves with: Reports: None Worsens with: Reports: None Associated Symptoms: Reports: No Other Symptoms Left Abdomen Pain Score (Numeric/FACES): 10 - Related Data Allergies Allergy/AdvReac Type Severity Reaction Status Date / Time acetaminophen Allergy Hives Verified 08/01/19 13:52 buprenorphine Allergy Hives Verified 08/01/19 13:52 butorphanol Allergy Cannot Verified 08/01/19 13:52 Remember cephalexin Allergy Hives Verified 08/01/19 13:52 cetirizine Allergy Hives Verified 08/01/19 13:52 codeine Allergy Hives Verified 08/01/19 13:52 Fish Containing Products Allergy Difficulty Verified 08/01/19 13:52 Breathing ibuprofen Allergy Swollen Verified 08/01/19 13:52 Tongue ketorolac [From Toradol] Allergy Swollen Verified 08/01/19 13:52 Tongue Penicillins Allergy Hives Verified 08/01/19 13:52 pentazocine [From Talwin] Allergy Hives Verified 08/01/19 13:52 prochlorperazine maleate Allergy Hives Verified 08/01/19 13:52 [From Compazine] sulfamethoxazole Allergy Swollen Verified 08/01/19 13:52 [From Bactrim] Tongue sumatriptan Allergy Swollen Verified 08/01/19 13:52 Tongue trimethoprim [From Bactrim] Allergy Swollen Verified 08/01/19 13:52 Tongue rofecoxib [From Vioxx] AdvReac Edema Verified 08/01/19 13:52 tramadol AdvReac Rash Verified 08/01/19 13:52 dihydroerotamine mesylate Allergy Cannot Uncoded 08/01/19 13:52 Remember Home Meds: Home Meds Nitroglycerin 0.4 mg SL ASDIRECTED PRN 07/01/17 [History] Albuterol Sulfate [Proair Hfa] 2 puff INH Q4HR PRN 01/26/19 [History] Docusate Sodium [Colace] 100 mg PO BID PRN 01/26/19 [History] Lidocaine 5% [Lidoderm 5%] 3 patch TOP Q12HR PRN 01/26/19 [History] Losartan Potassium 25 mg PO DAILY 01/26/19 [History] Multivitamin [Multi-Vitamin Daily] 1 tab PO DAILY 01/26/19 [History] Polyethylene Glycol 3350 [MiraLAX] 1 capful PO DAILY PRN 01/26/19 [History] QUEtiapine Fumarate [Quetiapine Fumarate] 25 mg PO BEDTIME 01/26/19 [History] Metoprolol Tartrate [Lopressor] 50 mg PO Q12HR #60 tab 01/27/19 [Rx] Rivaroxaban [Xarelto] 20 mg PO DAILY #30 tablet 01/27/19 [Rx] Past Medical History - Past Health History Medical/Surgical History: Denies Medical/Surgical History HEENT History: Reports: Cataract, Other (See Below) Other HEENT History: hypermetropia, presbyopia, astigmatism Cardiovascular History: Reports: High Cholesterol, Hypertension Other Cardiovascular History: Hyperlipidemia Respiratory History: Reports: Bronchitis, Recurrent Gastrointestinal History: Reports: Chronic Constipation, GERD, Hemorrhoids Genitourinary History: Reports: None 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: Musculoskeletal History: Reports: Arthritis Neurological History: Reports: Vertigo, Other (See Below) Other Neuro History: claustrophobia Psychiatric History: Reports: None Endocrine/Metabolic History: Reports: Obesity/BMI 30+ Hematologic History: Reports: None Immunologic History: Reports: None Oncologic (Cancer) History: Reports: None Dermatologic History: Reports: None - Infectious Disease History Infectious Disease History: Reports: Chicken Pox, Measles, Mumps - Past Surgical History Head Surgeries/Procedures: Reports: None HEENT Surgical History: Reports: Cataract Surgery Respiratory Surgical History: Reports: None GI Surgical History: Reports: Cholecystectomy, Other (See Below) Other GI Surgeries/Procedures: External Hemorrhoid. Female Surgical History: Reports: Hysterectomy Endocrine Surgical History: Reports: None Neurological Surgical History: Reports: None Oncologic Surgical History: Reports: None Social & Family History - Family History Family Medical History: Noncontributory - Tobacco Use Smoking Status *Q: Current Every Day Smoker Years of Tobacco use: 30 Packs/Tins Daily: 0.1 - Caffeine Use Caffeine Use: Reports: Coffee - Recreational Drug Use Recreational Drug Use: No - Living Situation & Occupation Living situation: Reports: with Family Occupation: Retired ED ROS GENERAL - Review of Systems Review Of Systems: ROS reveals no pertinent complaints other than HPI. ED EXAM, GENERAL - Physical Exam Exam: See Below Exam Limited By: No Limitations General Appearance: Alert, WD/WN, No Apparent Distress Nose: Normal Inspection Throat/Mouth: Normal Inspection, Normal Voice, No Airway Compromise Head: Atraumatic, Normocephalic Neck: Normal Inspection, Supple, Non-Tender, Full Range of Motion Respiratory/Chest: No Respiratory Distress, No Accessory Muscle Use, Decreased Breath Sounds, Crackles, Other (Left anterior/lateral chest wall tenderness to palpation, no visible bruising, erythema, rash, or swelling. No palpable crepitus.) Cardiovascular: Regular Rate, Rhythm GI/Abdominal: Normal Bowel Sounds, Soft, Non-Tender, No Distention Back Exam: Normal Inspection Extremities: Normal Inspection Neurological: Alert, Oriented, No Motor/Sensory Deficits Psychiatric: Normal Mood Skin Exam: Warm, Dry, Intact, Normal Color, No Rash EKG INTERPRETATION EKG Date: 08/01/19 Time: 14:32 Rhythm: Other (sinus bradycardia) Rate (Beats/Min): 55 [place]: Normal P-Wave: Present QRS: Other (probable left ventricular hypertrophy, inferior infarct, RSR in V1.) ST-T: Normal QT: Normal Course - Vital Signs Last Recorded V/S: Last Vital Signs Temp 98 F 08/01/19 13:52 Pulse 71 08/01/19 13:52 Resp 16 08/01/19 13:52 BP 120/57 L 08/01/19 13:52 Pulse Ox 98 08/01/19 13:52 - Orders/Labs/Meds Orders: Active Orders 24 hr Category Date Time Status EKG 12 Lead [EKG Documentation Completion] [RC] STAT Care 08/01/19 14:36 Active Ribs 2V w Chest Lt [CR] Urgent Exams 08/01/19 14:36 Taken Acetaminophen/Codeine [Tylenol with Codeine No.3 300MG/ Med 08/01/19 15:44 Once 30MG] 1 tab PO ONETIME ONE Ondansetron [Zofran ODT] Med 08/01/19 15:44 Once 4 mg PO ONETIME ONE Meds: Medications Discontinued Medications Generic Name Dose Route Start Last Admin Trade Name Víctor PRN Reason Stop Dose Admin Lidocaine HCl 15 gm 08/01/19 15:40 Lidocaine 5% TOP 08/01/19 15:41 ONETIME ONE - Radiology Interpretation Free Text/Narrative:: [facility] Final Radiology Report Call: [phone] assistance Online chat: [email or web address] Current Name: CAITIE CHARLES Age: 73Years F Date: 08/01/2019 SSN: -- : [id number] Study: XR RIBS 3 VIEWS W PA CHEST LEFT Requesting Physician: ANTHONY BROWN Images: 4 Addl Studies: Provided Clinical History: Contrast: Contrast Medium: Contrast Amount: Contrast Method: CONFIDENTIALITY STATEMENT This report is intended only for use by the referring physician, and only in accordance with law. If you received this in error, call [phone]. Page 1 of 1 EXAM: XR Left Ribs with PA Chest, 3 Views EXAM DATE/TIME: 08/01/2019 3:00 PM CLINICAL HISTORY: 73 years old, female; Other: Left rib/chest wall pain--bb sin area of most pain TECHNIQUE: Imaging protocol: XR Left ribs 3 views with PA chest. COMPARISON: CR Chest 1V Frontal 06/19/2019 9:19 PM FINDINGS: Lungs: Unremarkable. No consolidation. Pleural space: Unremarkable. No pleural effusion. No pneumothorax. Heart/Mediastinum: Unremarkable. No cardiomegaly. Bones/joints: Grossly unremarkable. Body habitus limits assessment of osseous structures IMPRESSION: No acute findings. Thank you for allowing us to participate in the care of your patient. Dictated and Authenticated by: Prashant Champion MD 08/01/2019 3:30 PM Central Time ([place] & [place]) - Re-Assessments/Exams Free Text/Narrative Re-Assessment/Exam: 08/01/19 15:45 Pt lists multiple allergies, but states the only thing her clinic doctor gives her for pain is Tylenol No. 3 (with codeine) and she tolerates it without any reaction. Departure - Departure Time of Disposition: 15:45 Disposition: Home, Self-Care 01 Condition: Good Clinical Impression: Rib pain on left side - Discharge Information *PRESCRIPTION DRUG MONITORING PROGRAM REVIEWED*: No *COPY OF PRESCRIPTION DRUG MONITORING REPORT IN PATIENT KHANG: No Instructions: Costochondritis, [id number] Forms: ED Department Discharge Additional Instructions: Rx: Tylenol No. 3 Follow up in clinic if not improving in 1 week. - My Orders Last 24 Hours: My Active Orders 08/01/19 14:36 EKG 12 Lead [EKG Documentation Completion] [RC] STAT Ribs 2V w Chest Lt [CR] Urgent 08/01/19 15:44 Acetaminophen/Codeine [Tylenol with Codeine No.3 300MG/30MG] 1 tab PO ONETIME ONE Ondansetron [Zofran ODT] 4 mg PO ONETIME ONE - Assessment/Plan Last 24 Hours: My Active Orders 08/01/19 14:36 EKG 12 Lead [EKG Documentation Completion] [RC] STAT Ribs 2V w Chest Lt [CR] Urgent 08/01/19 15:44 Acetaminophen/Codeine [Tylenol with Codeine No.3 300MG/30MG] 1 tab PO ONETIME ONE Ondansetron [Zofran ODT] 4 mg PO ONETIME ONE I have read and agree with the documentation that has been completed regarding this visit. By signing this record, I attest that the documentation was completed in my physical presence and is an accurate record of the encounter.
== END 2019-08-01 16:00 | disposition home or self-care (01) ==
LOC: DL.ED 13:34
DX: R07.81 Pleurodynia (principal); I10 Essential (primary) hypertension; E66.9 Obesity, unspecified; F17.210 Nicotine dependence, cigarettes, uncomplicated; Z88.8 Allergy status to other drugs, medicaments and biological substances; Z79.899 Other long term (current) drug therapy; Z79.51 Long term (current) use of inhaled steroids; Z90.49 Acquired absence of other specified parts of digestive tract; Z68.30 Body mass index [BMI] 30.0-30.9, adult
CPT/HCPCS: 71101; 93005; 99283; A9270

== ENCOUNTER 2019-09-27 13:07 | Emergency (ER) | payer BC, OTHER ==
[2019-09-27 14:47] VITALS: BP 158/74; PULSE 68
== END 2019-09-27 16:20 | disposition left against medical advice (07) ==
LOC: DL.ED 13:07
DX: Z53.21 Procedure and treatment not carried out due to patient leaving prior to being seen by health care provider (principal)
CPT/HCPCS: 99283

== ENCOUNTER 2019-10-03 11:44 | Emergency (ER) | payer BC, OTHER ==
[2019-10-03 11:53] VITALS: BP 174/86; PULSE 65
[2019-10-03 12:33] LABS: ANION GAP 11.3
--- NOTE | 2019-10-03 12:45 | EDM.PDOC ---
Scribed by Misty Briscoe 10/03/19 1208 for Mat Brown MD ED HPI GENERAL MEDICAL PROBLEM - General Chief Complaint: Neuro Symptoms/Deficits Stated Complaint: DIZZINESS Time Seen by Provider: 10/03/19 12:00 Source of Information: Reports: Patient, RN, RN Notes Reviewed History Limitations: Reports: No Limitations - History of Present Illness INITIAL COMMENTS - FREE TEXT/NARRATIVE: Patient presents to ER via POV with complaint that she is having dizziness. She states that she has had this for the last 3 weeks. She has seen her primary care for this and blood work was done and she is scheduled for an MRI. She states that this is set up for October 22. She continues to have the dizziness and wants to know why. Patient states that yesterday she started getting dizzy around 0900 and then was given something to eat and felt better. She then did not have the dizziness again until the afternoon and again after she ate she felt better. She states that she had not eaten in between, and then right at bedtime became dizzy again. Onset: Gradual Duration: Constant Severity: Moderate Improves with: Reports: None Worsens with: Reports: None Associated Symptoms: Reports: No Other Symptoms - Related Data Allergies Allergy/AdvReac Type Severity Reaction Status Date / Time acetaminophen Allergy Hives Verified 10/03/19 11:54 buprenorphine Allergy Hives Verified 10/03/19 11:54 butorphanol Allergy Cannot Verified 10/03/19 11:54 Remember cephalexin Allergy Hives Verified 10/03/19 11:54 cetirizine Allergy Hives Verified 10/03/19 11:54 codeine Allergy Hives Verified 10/03/19 11:54 Fish Containing Products Allergy Difficulty Verified 10/03/19 11:54 Breathing ibuprofen Allergy Swollen Verified 10/03/19 11:54 Tongue ketorolac [From Toradol] Allergy Swollen Verified 10/03/19 11:54 Tongue Penicillins Allergy Hives Verified 10/03/19 11:54 pentazocine [From Talwin] Allergy Hives Verified 10/03/19 11:54 prochlorperazine maleate Allergy Hives Verified 10/03/19 11:54 [From Compazine] sulfamethoxazole Allergy Swollen Verified 10/03/19 11:54 [From Bactrim] Tongue sumatriptan Allergy Swollen Verified 10/03/19 11:54 Tongue trimethoprim [From Bactrim] Allergy Swollen Verified 10/03/19 11:54 Tongue rofecoxib [From Vioxx] AdvReac Edema Verified 10/03/19 11:54 tramadol AdvReac Rash Verified 10/03/19 11:54 dihydroerotamine mesylate Allergy Cannot Uncoded 10/03/19 11:54 Remember Home Meds: Home Meds Nitroglycerin 0.4 mg SL ASDIRECTED PRN 07/01/17 [History] Albuterol Sulfate [Proair Hfa] 2 puff INH Q4HR PRN 01/26/19 [History] Docusate Sodium [Colace] 100 mg PO BID PRN 01/26/19 [History] Lidocaine 5% [Lidoderm 5%] 3 patch TOP Q12HR PRN 01/26/19 [History] Losartan Potassium 25 mg PO DAILY 01/26/19 [History] Multivitamin [Multi-Vitamin Daily] 1 tab PO DAILY 01/26/19 [History] Polyethylene Glycol 3350 [MiraLAX] 1 capful PO DAILY PRN 01/26/19 [History] Metoprolol Tartrate [Lopressor] 50 mg PO Q12HR #60 tab 01/27/19 [Rx] Rivaroxaban [Xarelto] 20 mg PO DAILY #30 tablet 01/27/19 [Rx] Past Medical History - Past Health History Medical/Surgical History: Denies Medical/Surgical History HEENT History: Reports: Cataract, Other (See Below) Other HEENT History: hypermetropia, presbyopia, astigmatism, Cardiovascular History: Reports: High Cholesterol, Hypertension Other Cardiovascular History: Hyperlipidemia Respiratory History: Reports: Bronchitis, Recurrent Gastrointestinal History: Reports: Chronic Constipation, GERD, Hemorrhoids Genitourinary History: Reports: None [employer]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: Musculoskeletal History: Reports: Arthritis Neurological History: Reports: Vertigo, Other (See Below) Other Neuro History: claustrophobia Psychiatric History: Reports: None Endocrine/Metabolic History: Reports: Obesity/BMI 30+ Hematologic History: Reports: None Immunologic History: Reports: None Oncologic (Cancer) History: Reports: None Dermatologic History: Reports: None - Infectious Disease History Infectious Disease History: Reports: Chicken Pox, Measles, Mumps - Past Surgical History Head Surgeries/Procedures: Reports: None HEENT Surgical History: Reports: Cataract Surgery Respiratory Surgical History: Reports: None GI Surgical History: Reports: Cholecystectomy, Other (See Below) Other GI Surgeries/Procedures: External Hemorrhoid. Female Surgical History: Reports: Hysterectomy Endocrine Surgical History: Reports: None Neurological Surgical History: Reports: None Oncologic Surgical History: Reports: None Social & Family History - Family History Family Medical History: Noncontributory - Caffeine Use Caffeine Use: Reports: Coffee - Living Situation & Occupation Living situation: Reports: with Family Occupation: Employed ED ROS GENERAL - Review of Systems Review Of Systems: ROS reveals no pertinent complaints other than HPI. ED EXAM, DIZZINESS - Physical Exam Exam: See Below Exam Limited By: No Limitations General Appearance: Alert, WD/WN, No Apparent Distress, Obese Eye Exam: Bilateral Eye: EOMI, Normal Inspection, PERRL Ears: Normal External Exam, Normal Canal, Hearing Grossly Normal, Normal TMs Nose: Normal Inspection, Normal Mucosa, No Blood Throat/Mouth: Normal Oropharynx, Normal Voice, No Airway Compromise, Other ( Angular stomatitis) Head Exam: Atraumatic, Normocephalic Respiratory/Chest: No Respiratory Distress, No Accessory Muscle Use, Chest Non- Tender, Decreased Breath Sounds Cardiovascular: Regular Rate, Rhythm, No Edema Neurological: Alert, Normal Mood/Affect, Normal Dorsiflexion, CN II-XII Intact, Normal Gait, No Motor/Sensory Deficits, Oriented x 3 Back Exam: Normal Inspection Extremities: Normal Inspection Psychiatric: Normal Affect, Normal Mood Skin Exam: Warm, Dry, Intact, Normal Color, No Rash Course - Vital Signs Last Recorded V/S: Last Vital Signs Temp 97.1 F 10/03/19 11:48 Pulse 65 10/03/19 11:48 Resp 16 10/03/19 11:48 BP 174/86 H 10/03/19 11:48 Pulse Ox 98 10/03/19 11:48 - Orders/Labs/Meds Labs: Laboratory Tests 10/03/19 10/03/19 Range/Units 12:10 12:10 WBC 5.5 (5.0-10.0) 10^3/uL RBC 4.53 (4.2-5.4) 10^6/uL Hgb 12.9 (12.0-16.0) g/dL Hct 40.3 (37.0-47.0) % MCV 89.0 (80-100) fL MCH 28.5 (27.0-34.0) pg MCHC 32.0 L (33.0-35.0) g/dL Plt Count 251 (150-450) 10^3/uL Neut % (Auto) 50.2 (42.2-75.2) % Lymph % (Auto) 37.1 (20.5-50.1) % [place] % (Auto) 10.3 H (2-8) % Eos % (Auto) 2.0 (1.0-3.0) % Baso % (Auto) 0.4 (0.0-1.0) % Sodium 138 (135-145) mmol/L Potassium 4.3 (3.6-5.0) mmol/L Chloride 103 (101-111) mmol/L Carbon Dioxide 28.0 (21.0-31.0) mmol/L Anion Gap 11.3 BUN 14 (7-18) mg/dL Creatinine 1.0 (0.6-1.3) mg/dL Est Cr Clr Drug Dosing 34.91 mL/min Estimated GFR (MDRD) 54 BUN/Creatinine Ratio 14.00 Glucose 107 H (74-105) mg/dL Calcium 8.8 (8.4-10.2) mg/dl Magnesium 2.0 (1.8-2.5) mg/dL Total Bilirubin 0.6 (0.2-1.0) mg/dL AST 19 (10-42) IU/L ALT 15 (10-60) IU/L Alkaline Phosphatase 93 (42-121) IU/L Total Protein 7.1 (6.7-8.2) g/dl Albumin 3.8 (3.2-5.5) g/dl Globulin 3.3 Albumin/Globulin Ratio 1.15 Departure - Departure Time of Disposition: 12:43 Disposition: Home, Self-Care 01 Condition: Good Clinical Impression: Dizziness, Hypoglycemia - Discharge Information *PRESCRIPTION DRUG MONITORING PROGRAM REVIEWED*: No *COPY OF PRESCRIPTION DRUG MONITORING REPORT IN PATIENT KHANG: No Instructions: Dizziness, [id number], Hypoglycemia Forms: ED Department Discharge Additional Instructions: Keep a written record of the time of your meals, and the time and duration of your dizzy episodes, and take that information with you to your clinic doctor. I have read and agree with the documentation that has been completed regarding this visit. By signing this record, I attest that the documentation was completed in my physical presence and is an accurate record of the encounter.
== END 2019-10-03 12:50 | disposition home or self-care (01) ==
LOC: DL.ED 11:44
DX: E16.2 Hypoglycemia, unspecified (principal); I10 Essential (primary) hypertension; E66.9 Obesity, unspecified; Z68.38 Body mass index [BMI] 38.0-38.9, adult; Z88.6 Allergy status to analgesic agent; Z88.5 Allergy status to narcotic agent; Z88.1 Allergy status to other antibiotic agents; Z91.013 Allergy to seafood; Z88.0 Allergy status to penicillin; Z88.8 Allergy status to other drugs, medicaments and biological substances; Z79.899 Other long term (current) drug therapy
CPT/HCPCS: 36415; 80053; 83735; 85025; 99284

== ENCOUNTER 2019-11-30 10:23 | Emergency (ER) | payer BC, OTHER ==
[2019-11-30 11:07] VITALS: BP 157/78; PULSE 76
--- NOTE | 2019-11-30 11:54 | EDM.PDOC ---
ED HPI GENERAL MEDICAL PROBLEM - General Chief Complaint: Lower Extremity Injury/Pain Stated Complaint: leg hurts red rigoberto Time Seen by Provider: 11/30/19 11:42 Source of Information: Reports: Patient, RN, RN Notes Reviewed History Limitations: Reports: No Limitations - History of Present Illness INITIAL COMMENTS - FREE TEXT/NARRATIVE: Patient presents to ER with complaint of redness and pain to the right lower leg. She first noticed this on Saturday as a small red spot. It has progressed up the jones to just under the right knee. No trauma to the leg. Denies fever or chills. Has used topical anti-itch/antibiotic on it. No itching. States spiders in the house. Onset Date: 11/28/19 Duration: Getting Worse Location: Reports: Lower Extremity, Right Quality: Reports: Ache Severity: Mild Improves with: Reports: None Worsens with: Reports: None Associated Symptoms: Reports: No Other Symptoms Right Lower Leg Pain Score (Numeric/FACES): 10 - Related Data Allergies Allergy/AdvReac Type Severity Reaction Status Date / Time acetaminophen Allergy Hives Verified 10/03/19 11:54 buprenorphine Allergy Hives Verified 10/03/19 11:54 butorphanol Allergy Cannot Verified 11/30/19 11:07 Remember cephalexin Allergy Hives Verified 11/30/19 11:07 cetirizine Allergy Hives Verified 11/30/19 11:07 codeine Allergy Hives Verified 11/30/19 11:07 Fish Containing Products Allergy Difficulty Verified 11/30/19 11:07 Breathing ibuprofen Allergy Swollen Verified 11/30/19 11:07 Tongue ketorolac [From Toradol] Allergy Swollen Verified 11/30/19 11:07 Tongue Penicillins Allergy Hives Verified 11/30/19 11:07 pentazocine [From Talwin] Allergy Hives Verified 11/30/19 11:07 prochlorperazine maleate Allergy Hives Verified 11/30/19 11:07 [From Compazine] sulfamethoxazole Allergy Swollen Verified 11/30/19 11:07 [From Bactrim] Tongue sumatriptan Allergy Swollen Verified 11/30/19 11:07 Tongue trimethoprim [From Bactrim] Allergy Swollen Verified 11/30/19 11:07 Tongue rofecoxib [From Vioxx] AdvReac Edema Verified 11/30/19 11:07 tramadol AdvReac Rash Verified 11/30/19 11:07 dihydroerotamine mesylate Allergy Cannot Uncoded 11/30/19 11:07 Remember Home Meds: Home Meds Nitroglycerin 0.4 mg SL ASDIRECTED PRN 07/01/17 [History] Albuterol Sulfate [Proair Hfa] 2 puff INH Q4HR PRN 01/26/19 [History] Docusate Sodium [Colace] 100 mg PO BID PRN 01/26/19 [History] Lidocaine 5% [Lidoderm 5%] 3 patch TOP Q12HR PRN 01/26/19 [History] Losartan Potassium 25 mg PO DAILY 01/26/19 [History] Multivitamin [Multi-Vitamin Daily] 1 tab PO DAILY 01/26/19 [History] Polyethylene Glycol 3350 [MiraLAX] 1 capful PO DAILY PRN 01/26/19 [History] Metoprolol Tartrate [Lopressor] 50 mg PO Q12HR #60 tab 01/27/19 [Rx] Rivaroxaban [Xarelto] 20 mg PO DAILY #30 tablet 01/27/19 [Rx] Past Medical History - Past Health History Medical/Surgical History: Denies Medical/Surgical History HEENT History: Reports: Cataract, Other (See Below) Other HEENT History: hypermetropia, presbyopia, astigmatism, Cardiovascular History: Reports: High Cholesterol, Hypertension Other Cardiovascular History: Hyperlipidemia Respiratory History: Reports: Bronchitis, Recurrent Gastrointestinal History: Reports: Chronic Constipation, GERD, Hemorrhoids Genitourinary History: Reports: None 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: Musculoskeletal History: Reports: Arthritis Neurological History: Reports: Vertigo, Other (See Below) Other Neuro History: claustrophobia Psychiatric History: Reports: None Endocrine/Metabolic History: Reports: Obesity/BMI 30+ Hematologic History: Reports: None Immunologic History: Reports: None Oncologic (Cancer) History: Reports: None Dermatologic History: Reports: None - Infectious Disease History Infectious Disease History: Reports: Chicken Pox, Measles, Mumps - Past Surgical History Head Surgeries/Procedures: Reports: None HEENT Surgical History: Reports: Cataract Surgery Respiratory Surgical History: Reports: None GI Surgical History: Reports: Cholecystectomy, Other (See Below) Other GI Surgeries/Procedures: External Hemorrhoid. Female Surgical History: Reports: Hysterectomy Endocrine Surgical History: Reports: None Neurological Surgical History: Reports: None Oncologic Surgical History: Reports: None Social & Family History - Family History Family Medical History: Noncontributory - Tobacco Use Smoking Status *Q: Never Smoker Second Hand Smoke Exposure: No - Caffeine Use Caffeine Use: Reports: None - Recreational Drug Use Recreational Drug Use: No - Living Situation & Occupation Living situation: Reports: with Family Occupation: Employed Review of Systems - Review of Systems Review Of Systems: Comprehensive ROS is negative, except as noted in HPI. ED EXAM, GENERAL - Physical Exam Exam: See Below Exam Limited By: No Limitations General Appearance: Alert, WD/WN, No Apparent Distress Eye Exam: Bilateral Eye: EOMI, Normal Inspection, PERRL Ears: Normal External Exam, Normal Canal, Hearing Grossly Normal, Normal TMs Nose: Normal Inspection, Normal Mucosa, No Blood Throat/Mouth: Normal Inspection, Normal Lips, Normal Teeth, Normal Gums, Normal Oropharynx, Normal Voice, No Airway Compromise Head: Atraumatic, Normocephalic Neck: Normal Inspection, Supple, Non-Tender, Full Range of Motion Respiratory/Chest: No Respiratory Distress, Lungs Clear, Normal Breath Sounds, No Accessory Muscle Use, Chest Non-Tender Cardiovascular: Normal Peripheral Pulses, Regular Rate, Rhythm, No Edema, No Gallop, No JVD, No Murmur, No Rub GI/Abdominal: Normal Bowel Sounds, Soft, Non-Tender, No Organomegaly, No Distention, No Abnormal Bruit, No Mass (Female) Exam: Deferred Rectal (Female) Exam: Deferred Back Exam: Normal Inspection, Full Range of Motion, NT Extremities: Other (see skin exam) Neurological: Alert, Oriented, CN II-XII Intact, Normal Cognition, Normal Gait, Normal Reflexes, No Motor/Sensory Deficits Psychiatric: Normal Affect, Normal Mood Skin Exam: Other (erythematous right jones just below knee to right ankle.) Lymphatic: No Adenopathy Course - Vital Signs Last Recorded V/S: Last Vital Signs Temp 96.8 F 11/30/19 11:02 Pulse 76 11/30/19 11:02 Resp 16 11/30/19 11:02 BP 157/78 H 11/30/19 11:02 Pulse Ox 99 11/30/19 11:02 Departure - Departure Time of Disposition: 11:50 Disposition: Home, Self-Care 01 Condition: Fair Clinical Impression: Cellulitis Qualifiers: Site of cellulitis: extremity Site of cellulitis of extremity: lower extremity Laterality: right Qualified Code(s): L03.115 - Cellulitis of right lower limb - Discharge Information *PRESCRIPTION DRUG MONITORING PROGRAM REVIEWED*: No *COPY OF PRESCRIPTION DRUG MONITORING REPORT IN PATIENT KHANG: No Instructions: Cellulitis, Adult, [id number] Referrals: Juventino Vital [Primary Care Provider] - Forms: ED Department Discharge Additional Instructions: RX: Doxycycline Follow up with your primary care facility Sepsis Event Note - Evaluation Sepsis Screening Result: No Definite Risk - Focused Exam Vital Signs: Vital Signs Temp Pulse Resp BP Pulse Ox 11/30/19 11:02 96.8 F 76 16 157/78 H 99 Date Exam was Performed: 11/30/19 Time Exam was Performed: 17:22
== END 2019-11-30 12:04 | disposition home or self-care (01) ==
LOC: DL.ED 10:23
DX: L03.115 Cellulitis of right lower limb (principal); I10 Essential (primary) hypertension; E78.00 Pure hypercholesterolemia, unspecified; M19.90 Unspecified osteoarthritis, unspecified site; E66.9 Obesity, unspecified; Z68.38 Body mass index [BMI] 38.0-38.9, adult; Z88.8 Allergy status to other drugs, medicaments and biological substances; Z88.5 Allergy status to narcotic agent; Z91.013 Allergy to seafood; Z88.0 Allergy status to penicillin; Z88.1 Allergy status to other antibiotic agents; Z88.2 Allergy status to sulfonamides; Z79.899 Other long term (current) drug therapy; Z79.01 Long term (current) use of anticoagulants
CPT/HCPCS: 99283

== ENCOUNTER 2022-11-08 13:45 | Emergency (ER) | payer BC, OTHER ==
[2022-11-08] MEDS ORDERED: Sodium Chloride 0.9% 10 ML Syringe FLUSH PRN (14:05)
[2022-11-08 14:14] VITALS: BP 189/81; PULSE 62
[2022-11-08 15:12] LABS: ANION GAP 9.1 mEq/L (7-13)
[2022-11-08 16:10] LABS: CORONAVIRUS COVID-19 NAA NEGATIVE (NEGATIVE); RESPIRATORY SYNCYTIAL VIR NAA NEGATIVE (NEGATIVE)
== END 2022-11-08 16:03 | disposition home or self-care (01) ==
LOC: DL.ED 13:45
DX: R06.02 Shortness of breath (principal); I48.91 Unspecified atrial fibrillation; E78.00 Pure hypercholesterolemia, unspecified; I10 Essential (primary) hypertension; M19.90 Unspecified osteoarthritis, unspecified site; E66.9 Obesity, unspecified; Z68.41 Body mass index [BMI] 40.0-44.9, adult; Z88.6 Allergy status to analgesic agent; Z88.8 Allergy status to other drugs, medicaments and biological substances; Z88.1 Allergy status to other antibiotic agents; Z88.5 Allergy status to narcotic agent; Z91.013 Allergy to seafood; Z88.0 Allergy status to penicillin; Z79.01 Long term (current) use of anticoagulants; Z79.899 Other long term (current) drug therapy
CPT/HCPCS: 0241U; 36415; 71045; 80053; 83605; 83735; 83880; 84484; 85025; 87040; 93005; 99285; J3490

== ENCOUNTER 2023-08-31 17:20 | Emergency (ER) | payer BC, OTHER ==
[2023-08-31] MEDS ORDERED: Lidocaine 1% 5 ML VIAL INJECT ONE (19:39)
[2023-08-31] MEDS ORDERED: Diphtheria,Pertussis(Acell),Tetanus Vaccine 0.5 ML Syringe IM ONE (19:40)
[2023-08-31] MEDS ORDERED: Benzonatate 100 MG Cap PO ONE ×2 (20:05→20:07)
[2023-08-31] MEDS ORDERED: Take Home: Benzonatate 100 MG, 6 Cap Pack PO ONE (20:10)
[2023-08-31 20:26] VITALS: BP 129/75; PULSE 81
== END 2023-08-31 20:20 | disposition home or self-care (01) ==
LOC: DL.ED 17:20
DX: R05.1 Acute cough (principal); I48.91 Unspecified atrial fibrillation; I10 Essential (primary) hypertension; E66.9 Obesity, unspecified; Z68.41 Body mass index [BMI] 40.0-44.9, adult; Z88.0 Allergy status to penicillin; Z88.8 Allergy status to other drugs, medicaments and biological substances; Z88.1 Allergy status to other antibiotic agents; Z88.2 Allergy status to sulfonamides; Z88.5 Allergy status to narcotic agent; Z91.013 Allergy to seafood; Z88.6 Allergy status to analgesic agent
CPT/HCPCS: 99283; A9270-GY

== ENCOUNTER 2023-12-29 18:03 | Emergency (ER) | payer BC, OTHER ==
[2023-12-29] MEDS ORDERED: hydrALAZINE 20 MG/ML SDV IVPUSH ONE (18:57)
[2023-12-29 19:08] VITALS: BP 203/89; PULSE 96
[2023-12-29] MEDS: Sodium Chloride 0.9% 10 ML Syringe FLUSH PRN ×2 (19:17→19:19)
[2023-12-29 19:23] LABS: BASOPHILS PERCENT AUTO 0.4 % (0.0-1.0); EOSINOPHILS PERCENT AUTO 1.6 % (1.0-3.0); HEMATOCRIT 38.7 % (37.0-47.0); HEMOGLOBIN 12.1 g/dL (12.0-16.0); LYMPHOCYTES PERCENT AUTO 32.4 % (20.5-50.1); MEAN CORPUSCULAR HEMOGLOBIN 29.1 pg (27.0-34.0); MEAN CORPUSCULAR HGB CONC 31.3 g/dL (33.0-35.0); MONOCYTES PERCENT AUTO 9.5 % (2-8); NEUTROPHILS PERCENT AUTO 56.1 % (42.2-75.2); PLATELET COUNT,PLT 255 10^3/uL (150-450); RED BLOOD CELL COUNT 4.16 10^6/uL (4.2-5.4); WHITE BLOOD CELL COUNT,WBC 9.2 10^3/uL (5.0-10.0)
[2023-12-29 19:38] LABS: A/G RATIO 0.9; ALBUMIN 3.4 g/dL (3.4-5.0); ANION GAP 12.4 mEq/L (7-13); BILIRUBIN TOTAL 0.3 mg/dL (0.2-1.0); BUN/CREATININE RATIO 17.6 (No establ ref range); CALCIUM 8.5 mg/dL (8.5-10.1); CREATININE 1.08 mg/dL (0.55-1.02); EST CRCL DRUG DOSING (CG) 30.34 mL/min; POTASSIUM,K 4.4 mmol/L (3.5-5.1); PROTEIN TOTAL,TP 7.1 g/dL (6.4-8.2)
[2023-12-29 20:00] LABS: CORONAVIRUS COVID-19 NAA NEGATIVE (NEGATIVE); INFLUENZA A NAA NEGATIVE (NEGATIVE); INFLUENZA B NAA NEGATIVE (NEGATIVE); RESPIRATORY SYNCYTIAL VIR NAA NEGATIVE (NEGATIVE)
[2023-12-29 20:37] LABS: APPEARANCE,URINE CLEAR (CLEAR); BILIRUBIN,URINE NEGATIVE (NEGATIVE); COLOR,URINE YELLOW (YELLOW); GLUCOSE,URINE NEGATIVE (NEGATIVE); KETONES,URINE NEGATIVE (NEGATIVE); LEUKOCYTE ESTERASE,URINE NEGATIVE (NEGATIVE); NITRITE,URINE NEGATIVE (NEGATIVE); OCCULT BLOOD,URINE NEGATIVE (NEGATIVE); PROTEIN,URINE NEGATIVE (NEGATIVE); UROBILINOGEN,URINE 0.2 mg/dL (0.2-1.0)
== END 2023-12-29 21:02 | disposition home or self-care (01) ==
LOC: DL.ED 18:03
DX: I16.0 Hypertensive urgency (principal); T38.0X5A Adverse effect of glucocorticoids and synthetic analogues, initial encounter; E78.00 Pure hypercholesterolemia, unspecified; I48.91 Unspecified atrial fibrillation; K21.9 Gastro-esophageal reflux disease without esophagitis; E66.9 Obesity, unspecified; Z90.49 Acquired absence of other specified parts of digestive tract; Z87.891 Personal history of nicotine dependence; Z79.899 Other long term (current) drug therapy; Z88.6 Allergy status to analgesic agent; Z88.8 Allergy status to other drugs, medicaments and biological substances; Z88.2 Allergy status to sulfonamides; Z88.1 Allergy status to other antibiotic agents; Z91.013 Allergy to seafood; Z88.0 Allergy status to penicillin; Z88.5 Allergy status to narcotic agent; Z68.41 Body mass index [BMI] 40.0-44.9, adult
CPT/HCPCS: 0241U; 36415; 71046; 80053; 81003; 83735; 83880; 85025; 93005; 96374; 99284; J0360; J3490

== ENCOUNTER 2024-04-11 08:39 | Emergency (ER) | payer BC, OTHER ==
[2024-04-11 09:12] VITALS: BP 172/106; PULSE 58
== END 2024-04-11 10:28 | disposition home or self-care (01) ==
LOC: DL.ED 08:39
DX: S83.92XA Sprain of unspecified site of left knee, initial encounter (principal); M23.92 Unspecified internal derangement of left knee; E11.9 Type 2 diabetes mellitus without complications; X50.1XXA Overexertion from prolonged static or awkward postures, initial encounter; Y93.89 Activity, other specified; Y92.007 Garden or yard of unspecified non-institutional (private) residence as the place of occurrence of the external cause
CPT/HCPCS: 73562-LT; 99282; 99283

== ENCOUNTER 2024-08-28 13:34 | Emergency (ER) | payer OTHER, BC ==
[2024-08-28 13:53] VITALS: BP 182/92; PULSE 62
== END 2024-08-28 16:19 | disposition home or self-care (01) ==
LOC: DL.ED 13:34
DX: S82.002A Unspecified fracture of left patella, initial encounter for closed fracture (principal); M25.571 Pain in right ankle and joints of right foot; I10 Essential (primary) hypertension; E11.9 Type 2 diabetes mellitus without complications; Z90.710 Acquired absence of both cervix and uterus; Z79.899 Other long term (current) drug therapy; Z88.6 Allergy status to analgesic agent; Z88.5 Allergy status to narcotic agent; Z88.1 Allergy status to other antibiotic agents; Z88.9 Allergy status to unspecified drugs, medicaments and biological substances; Z88.0 Allergy status to penicillin; Z88.2 Allergy status to sulfonamides; Z88.8 Allergy status to other drugs, medicaments and biological substances; V48.5XXA Car driver injured in noncollision transport accident in traffic accident, initial encounter
CPT/HCPCS: 73562-LT; 73590-LT; 73610-LT; 73610-RT; 73620-LT; 99283

== ENCOUNTER 2024-10-26 03:08 | Emergency (ER) | payer BC, MEDICARE, OTHER ==
[2024-10-26 03:26] VITALS: BP 187/81; PULSE 74
[2024-10-26] MEDS: Lactulose Soln 10 GM/15 ML 30 ML UD Cup PO ONE (03:35)
== END 2024-10-26 03:46 | disposition home or self-care (01) ==
LOC: DL.ED 03:08
DX: K59.01 Slow transit constipation (principal); I15.9 Secondary hypertension, unspecified; E11.9 Type 2 diabetes mellitus without complications; Z90.49 Acquired absence of other specified parts of digestive tract; Z90.710 Acquired absence of both cervix and uterus; Z88.5 Allergy status to narcotic agent; Z88.6 Allergy status to analgesic agent; Z88.0 Allergy status to penicillin; Z88.2 Allergy status to sulfonamides; Z88.1 Allergy status to other antibiotic agents; Z91.013 Allergy to seafood; Z79.51 Long term (current) use of inhaled steroids; Z79.01 Long term (current) use of anticoagulants; Z79.899 Other long term (current) drug therapy
CPT/HCPCS: 99283; 99284; A9270

== ENCOUNTER 2025-01-10 03:44 | Emergency (ER) | payer BC, OTHER ==
[2025-01-10 03:59] VITALS: BP 171/70; PULSE 54
[2025-01-10] MEDS: Lactulose Soln 10 GM/15 ML 30 ML UD Cup PO ONE (04:05)
== END 2025-01-10 04:08 | disposition home or self-care (01) ==
LOC: DL.ED 03:44
DX: K59.01 Slow transit constipation (principal); I10 Essential (primary) hypertension; E11.9 Type 2 diabetes mellitus without complications; Z90.49 Acquired absence of other specified parts of digestive tract; Z90.710 Acquired absence of both cervix and uterus; Z79.899 Other long term (current) drug therapy; Z88.0 Allergy status to penicillin; Z88.2 Allergy status to sulfonamides; Z88.5 Allergy status to narcotic agent; Z88.6 Allergy status to analgesic agent; Z88.8 Allergy status to other drugs, medicaments and biological substances; Z88.1 Allergy status to other antibiotic agents; Z91.013 Allergy to seafood
CPT/HCPCS: 99283; A9270

== ENCOUNTER 2025-06-27 05:50 | Emergency (ER) | payer BC, OTHER ==
[2025-06-27] MEDS: Lactulose Soln 10 GM/15 ML 30 ML UD Cup PO ONE (06:04)
[2025-06-27 06:11] VITALS: BP 161/89; PULSE 60
== END 2025-06-27 06:06 | disposition home or self-care (01) ==
LOC: DL.ED 05:50 → EEVIPCON 05:50 → DL.ED 06:06
DX: K59.01 Slow transit constipation (principal); I10 Essential (primary) hypertension; E11.9 Type 2 diabetes mellitus without complications; Z88.8 Allergy status to other drugs, medicaments and biological substances; Z91.013 Allergy to seafood; Z88.1 Allergy status to other antibiotic agents; Z88.5 Allergy status to narcotic agent; Z79.51 Long term (current) use of inhaled steroids; Z79.899 Other long term (current) drug therapy
CPT/HCPCS: 99283; 99284; A9270